=== PATIENT | female | born 1990 | race Caucasian/White ===

== ENCOUNTER 2016-08-03 15:40 | Emergency (ER) | payer BC ==
[~2016-08-03] VITALS: Ht 154.9 cm; Wt 104.6 kg
[~2016-08-03 15:40] MED LIST: CIPR250T52 PO
[2016-08-03 15:49] VITALS: BP 130/83; PULSE 76; RESP 16; TEMP 98; O2SAT 97
--- NOTE | 2016-08-03 16:41 | PD ---
HPI Chief Complaint: Abdominal Pain Time Seen by Provider: 16:32 Travel History International Travel<30 days: No Contact w/Intl Traveler<30days: No Traveled to known affect area: No History of Present Illness HPI This 26-year-old female has complaint of neck pain, myalgias and some abdominal discomfort. She says she hasn't felt well for several days. About 5 days ago she was started on labetalol for hypertension, amoxicillin for urinary tract infection and atorvastatin for high cholesterol. There is a family history of heart disease in fact her mother recently of a heart attack. She was feeling well prior to starting these medications. She has no history of diabetes. She does not smoke PFSH Past Medical History Hx Anticoagulant Therapy: No Anxiety: Yes Depression: Yes Cardiovascular Problems: Yes High Cholesterol: Yes Diabetes: No Diminished Hearing: No Gastrointestinal Disorders: Yes Hypertension: Yes Reproductive: No Immunizations Current: Yes Thyroid Disease: Yes (HYPOTHYROID) Tetanus Vaccination: < 5 Years Influenza Vaccination: Yes ?: Not : 0 Para: 0 Ovarian Cysts: Yes (RIGHT) Past Surgical History Abdominal Surgery: No Cardiac Surgery: No Ear Surgery: No Endocrine Surgery: No Eye Surgery: No Genitourinary Surgery: No Gynecologic Surgery: No Neurologic Surgery: No Oral Surgery: Yes (wisdom teeth) Thoracic Surgery: No Tonsillectomy: Yes Other Surgery: Yes (TONSILS) Social History Alcohol Use: No Tobacco Use: No (quit 4 yrs ago) Substance Use: Yes (MARIJUANA) Allergies-Medications (Allergen,Severity, Reaction): Coded Allergies: *MDRO Multi-Drug Resistant Organism (Verified Allergy, Unknown, 08/03/16) MRSA Acetaminophen (Verified Allergy, Unknown, 08/03/16) Reported Meds & Prescriptions Reported Meds & Active Scripts Active Reported Atorvastatin (Atorvastatin Calcium) 20 Mg Tab 20 Mg PO HS Amoxicillin 500 Mg Tab 500 Mg PO TID Labetalol (Labetalol HCl) 100 Mg Tab 100 Mg PO TID Review of Systems General / Constitutional: No: Fever, Chills Eyes: No: Diploplia, Blurred Vision HENT: Positive: Neck Stiffness, Neck Pain, No: Headaches, Vertigo Cardiovascular: No: Chest Pain or Discomfort, Palpitations Respiratory: No: Cough, Shortness of Breath Gastrointestinal: Positive: Abdominal Pain, Constipation Genitourinary: No: Urgency, Frequency Musculoskeletal: No: Myalgias, Arthralgias Skin: No Rash, No Itching Neurologic: No: Weakness, Dizziness Psychiatric: No: Anxiety, Depression Physical Exam Narrative GENERAL: Well-developed female SKIN: Warm and dry. HEAD: Atraumatic. Normocephalic. EYES: Pupils equal and round. No scleral icterus. No injection or drainage. ENT: No nasal bleeding or discharge. Mucous membranes pink and moist. NECK: Trachea midline. No JVD. She has some mild tenderness of the strap muscles. She is able to flex and extend the neck CARDIOVASCULAR: Regular rate and rhythm. No murmur appreciated. RESPIRATORY: No accessory muscle use. Clear to auscultation. Breath sounds equal bilaterally. GASTROINTESTINAL: Abdomen soft, non-tender, nondistended. Hepatic and splenic margins not palpable. MUSCULOSKELETAL: No obvious deformities. No clubbing. No cyanosis. No edema. NEUROLOGICAL: Awake and alert. No obvious cranial nerve deficits. Motor grossly within normal limits. Normal speech. PSYCHIATRIC: Appropriate mood and affect; insight and judgment normal. Data Data Last Documented VS Vital Signs Date Time Temp Pulse Resp B/P Pulse Ox O2 Delivery O2 Flow Rate FiO2 08/03/16 15:49 98.0 76 16 130/83 97 Orders Complete Blood Count With Diff (08/03/16 16:40) Comprehensive Metabolic Panel (08/03/16 16:40) Creatine Kinase (Cpk) (08/03/16 16:40) Labs Laboratory Tests Test 08/03/16 16:53 White Blood Count 11.0 TH/MM3 Red Blood Count 5.07 MIL/MM3 Hemoglobin 14.2 GM/DL Hematocrit 43.2 % Mean Corpuscular Volume 85.3 FL Mean Corpuscular Hemoglobin 28.0 PG Mean Corpuscular Hemoglobin 32.8 % Concent Red Cell Distribution Width 13.2 % Platelet Count 300 TH/MM3 Mean Platelet Volume 7.4 FL Neutrophils (%) (Auto) 63.0 % Lymphocytes (%) (Auto) 31.2 % Monocytes (%) (Auto) 2.7 % Eosinophils (%) (Auto) 2.7 % Basophils (%) (Auto) 0.4 % Neutrophils # (Auto) 7.0 TH/MM3 Lymphocytes # (Auto) 3.4 TH/MM3 Monocytes # (Auto) 0.3 TH/MM3 Eosinophils # (Auto) 0.3 TH/MM3 Basophils # (Auto) 0.0 TH/MM3 CBC Comment DIFF FINAL Differential Comment Sodium Level 140 MEQ/L Potassium Level 3.7 MEQ/L Chloride Level 104 MEQ/L Carbon Dioxide Level 27.7 MEQ/L Anion Gap 8 MEQ/L Blood Urea Nitrogen 15 MG/DL Creatinine 0.85 MG/DL Estimat Glomerular Filtration 80 ML/MIN Rate Random Glucose 160 MG/DL Calcium Level 8.5 MG/DL Total Bilirubin 0.5 MG/DL Aspartate Amino Transf 14 U/L (AST/SGOT) Alanine Aminotransferase 24 U/L (ALT/SGPT) Alkaline Phosphatase 53 U/L Total Creatine Kinase 160 U/L Total Protein 7.9 GM/DL Albumin 4.0 GM/DL [facility] Medical Decision Making Medical Screen Exam Complete: Yes Emergency Medical Condition: Yes Medical Record Reviewed: Yes Differential Diagnosis Differential includes viral syndrome, statin myopathy Narrative Course Patient's lab work is unremarkable. I suspect his symptoms could be due to the statin and I have recommended that she stop it for a few days to see if she feels better. She could then be rechallenge at a later time. Diagnosis Primary Impression: Adverse reaction to statin medication Qualified Code: T46.6X5A - Adverse reaction to statin medication, initial encounter Referrals: Alexandr Barney MD Additional Instructions: Hold atorvastatin Disposition: 01 DISCHARGE HOME Condition: Stable Kamari Lawton MD Aug 03, 2016 16:41
[2016-08-03] MEDS ORDERED: LABE100T2 PO (16:45)
[2016-08-03] MEDS ORDERED: AMOX500T PO (16:45)
[2016-08-03] MEDS ORDERED: ATOR20TA15 PO (16:45)
[2016-08-03 17:05] LABS: BASOPHIL % 0.4 % (0.0-2.0); EOSINOPHIL # 0.3 TH/MM3 (0-0.4); EOSINOPHIL % 2.7 % (0.0-4.0); HEMATOCRIT 43.2 % (35.0-46.0); HEMO FLAGS DIFF FINAL; LYMPH % 31.2 % (9.0-44.0); LYMPHOCYTE # 3.4 TH/MM3 (1.0-4.8); MEAN CELL VOLUME 85.3 FL (80.0-100.0); MEAN CORPUSCULAR HGB CONC 32.8 % (32.0-36.0); MONO % 2.7 % (0.0-8.0); PLATELET COUNT 300 TH/MM3 (150-450); RED BLOOD COUNT 5.07 MIL/MM3 (4.00-5.30); RED CELL DISTRIBUTION WIDTH 13.2 % (11.6-17.2)
[2016-08-03 17:12] LABS: CHLORIDE 104 MEQ/L (98-107); POTASSIUM 3.7 MEQ/L (3.5-5.1); SODIUM (NA) 140 MEQ/L (136-145)
[2016-08-03 17:15] LABS: ANION GAP 8 MEQ/L (5-15); BICARBONATE 27.7 MEQ/L (21.0-32.0)
[2016-08-03 17:16] LABS: BLOOD UREA NITROGEN 15 MG/DL (7-18)
[2016-08-03 17:18] LABS: AST (GOT) 14 U/L (15-37)
[2016-08-03 17:19] LABS: ALT (GPT) 24 U/L (10-53); GLOMERULAR FILTRATION RATE 80 ML/MIN (>89)
[2016-08-03 17:20] LABS: TOTAL BILIRUBIN ADULT 0.5 MG/DL (0.2-1.0)
[2016-08-03 17:21] LABS: ALKALINE PHOSPHATASE 53 U/L (45-117); CREATINE KINASE 160 U/L (26-192)
== END 2016-08-03 18:00 | disposition home or self-care (01) ==
LOC: PHED 15:40
DX: R10.9 Unspecified abdominal pain (principal); T46.6X5A Adverse effect of antihyperlipidemic and antiarteriosclerotic drugs, initial encounter; I10 Essential (primary) hypertension; E78.00 Pure hypercholesterolemia, unspecified; E03.9 Hypothyroidism, unspecified
CPT/HCPCS: 80053; 82550; 85025; 99284

== ENCOUNTER 2016-11-11 17:54 | Emergency (ER) | payer SELFPAY ==
[~2016-11-11] VITALS: Ht 154.9 cm; Wt 100.5 kg
[~2016-11-11 17:54] MED LIST changes: +AMOX500T PO; +ATOR20TA15 PO; -CIPR250T52 PO; +LABE100T2 PO
[2016-11-11 17:57] VITALS: BP 161/108; PULSE 94; RESP 16; TEMP 98.2; O2SAT 97
[2016-11-11] MEDS ORDERED: SODIUM CHLORIDE 0.9% FLUSH 10 ML FLUSH IVF PRN (18:15)
--- NOTE | 2016-11-11 18:20 | PD ---
HPI Chief Complaint: Back/ Neck Pain or Injury Time Seen by Provider: 18:07 Travel History International Travel<30 days: No Contact w/Intl Traveler<30days: No Traveled to known affect area: No History of Present Illness HPI 26-year-old female with history of PCOS, depression, hypertension, here for evaluation of several different complaints. The patient reports for the past 5 days she has been on her menstrual period which is heavier than usual. She is having lower abdominal cramping as well as pain in her back. She reports heavy lifting prior to back pain. Back pain is lower, mainly on the right side. Patient is also reporting intermittent sharp chest pain, currently she does not have any chest pain. She is also having intermittent paresthesias in her bilateral upper extremities. No dyspnea. No urinary symptoms. No history of IVDU. No fever. She denies suicidal or homicidal ideation. She reports that she is supposed to be on labetalol for her blood pressure and a statin, however she recently lost her insurance and was unable to fill these medications. PFSH Past Medical History Hx Anticoagulant Therapy: No Anxiety: Yes Depression: Yes Cardiovascular Problems: Yes (HTN , CHOL) High Cholesterol: Yes Diabetes: No Diminished Hearing: No Gastrointestinal Disorders: Yes Hypertension: Yes Reproductive: No Immunizations Current: Yes Thyroid Disease: Yes (HYPOTHYROID) ?: Not LMP: NOW : 0 Para: 0 Ovarian Cysts: Yes (RIGHT) Past Surgical History Abdominal Surgery: No Cardiac Surgery: No Ear Surgery: No Endocrine Surgery: No Eye Surgery: No Genitourinary Surgery: No Gynecologic Surgery: No Neurologic Surgery: No Oral Surgery: Yes (wisdom teeth) Thoracic Surgery: No Tonsillectomy: Yes Other Surgery: Yes (TONSILS) Social History Alcohol Use: No Tobacco Use: No (quit 4 yrs ago) Substance Use: Yes (MARIJUANA) Allergies-Medications (Allergen,Severity, Reaction): Coded Allergies: *MDRO Multi-Drug Resistant Organism (Verified Allergy, Unknown, 11/11/16) MRSA Acetaminophen (Verified Allergy, Unknown, 11/11/16) Reported Meds & Prescriptions Reported Meds & Active Scripts Active Reported Atorvastatin (Atorvastatin Calcium) 20 Mg Tab 20 Mg PO HS Labetalol (Labetalol HCl) 100 Mg Tab 100 Mg PO TID Review of Systems Except as stated in HPI: all other systems reviewed are Neg Physical Exam Narrative GENERAL: Well-developed, well-nourished, overweight, comfortable, no acute distress. SKIN: Focused skin assessment warm/dry. No rash. HEAD: Atraumatic. Normocephalic. EYES: Pupils equal and round. No scleral icterus. No injection or drainage. ENT: Mucous membranes pink and moist. NECK: Trachea midline. No JVD. CARDIOVASCULAR: Regular rate and rhythm. RESPIRATORY: No accessory muscle use. Clear to auscultation. Breath sounds equal bilaterally. GASTROINTESTINAL: Abdomen soft, nondistended. Mild lower abdominal/suprapubic tenderness without peritoneal signs. Rest of abdomen is soft and nontender. Normal bowel sounds. MUSCULOSKELETAL: No obvious deformities. No clubbing. No cyanosis. No edema. Mild right SI joint tenderness. No CVA tenderness. No midline vertebral step- off or tenderness. NEUROLOGICAL: Awake and alert. No obvious cranial nerve deficits. Motor grossly within normal limits. Normal speech. Normal muscle strength in all 4 extremities. Great toe extension present bilaterally. No saddle anesthesia. PSYCHIATRIC: Appropriate mood and affect; insight and judgment normal. Data Data Last Documented VS Vital Signs Date Time Temp Pulse Resp B/P Pulse Ox O2 Delivery O2 Flow Rate FiO2 11/11/16 19:33 17 11/11/16 17:57 98.2 94 161/108 97 Orders Electrocardiogram (11/11/16 18:13) Ckmb (Isoenzyme) Profile (11/11/16 18:13) Complete Blood Count With Diff (11/11/16 18:13) Comprehensive Metabolic Panel (11/11/16 18:13) Prothrombin Time / Inr (Pt) (11/11/16 18:13) Act Partial Throm Time (Ptt) (11/11/16 18:13) Troponin I (11/11/16 18:13) Chest, Single Ap (11/11/16 18:13) Ecg Monitoring (11/11/16 18:13) Iv Access Insert/Monitor (11/11/16 18:13) Oximetry (11/11/16 18:13) Sodium Chloride 0.9% Flush (Ns Flush) (11/11/16 18:15) Urinalysis - C+S If Indicated (11/11/16 18:13) Ed Urine Pregnancytest Poc (11/11/16 18:13) Ct Abd/Pel W Iv Contrast(Rout) (11/11/16 ) Ct Lumb Spine W/O Contrast (11/11/16 ) Ketorolac Inj (Toradol Inj) (11/11/16 18:30) CKMB (11/11/16 18:25) CKMB% (11/11/16 18:25) Labs Laboratory Tests Test 11/11/16 18:25 White Blood Count 11.3 TH/MM3 Red Blood Count 4.71 MIL/MM3 Hemoglobin 13.6 GM/DL Hematocrit 40.1 % Mean Corpuscular Volume 85.0 FL Mean Corpuscular Hemoglobin 28.9 PG Mean Corpuscular Hemoglobin 34.0 % Concent Red Cell Distribution Width 12.6 % Platelet Count 315 TH/MM3 Mean Platelet Volume 7.3 FL Neutrophils (%) (Auto) 51.9 % Lymphocytes (%) (Auto) 39.1 % Monocytes (%) (Auto) 4.1 % Eosinophils (%) (Auto) 4.2 % Basophils (%) (Auto) 0.7 % Neutrophils # (Auto) 5.8 TH/MM3 Lymphocytes # (Auto) 4.4 TH/MM3 Monocytes # (Auto) 0.5 TH/MM3 Eosinophils # (Auto) 0.5 TH/MM3 Basophils # (Auto) 0.1 TH/MM3 CBC Comment DIFF FINAL Differential Comment Prothrombin Time 11.0 SEC Prothromb Time International 1.0 RATIO Ratio Activated Partial 26.8 SEC Thromboplast Time Urine Color MARIA EUGENIA Urine Turbidity CLEAR Urine pH 5.5 Urine Specific [place] 1.025 Urine Protein NEG mg/dL Urine Glucose (UA) NEG mg/dL Urine Ketones NEG mg/dL Urine Occult Blood MOD Urine Nitrite NEG Urine Bilirubin NEG Urine Leukocyte Esterase NEG Urine RBC 0-3 /hpf Urine WBC 0-2 /hpf Urine Squamous Epithelial 0-5 /hpf Cells Urine Amorphous Sediment SMALL Urine Hyaline Casts 3-5 /lpf Urine Mucus MOD /lpf Microscopic Urinalysis Comment CULT NOT INDICATED Sodium Level 141 MEQ/L Potassium Level 4.2 MEQ/L Chloride Level 105 MEQ/L Carbon Dioxide Level 28.0 MEQ/L Anion Gap 8 MEQ/L Blood Urea Nitrogen 13 MG/DL Creatinine 1.00 MG/DL Estimat Glomerular Filtration 67 ML/MIN Rate Random Glucose 90 MG/DL Calcium Level 8.9 MG/DL Total Bilirubin 0.7 MG/DL Aspartate Amino Transf 28 U/L (AST/SGOT) Alanine Aminotransferase 27 U/L (ALT/SGPT) Alkaline Phosphatase 48 U/L Total Creatine Kinase 533 U/L Creatine Kinase MB 4.7 NG/ML Creatine Kinase MB % 0.9 % Troponin I LESS THAN 0.02 NG/ML Total Protein 7.7 GM/DL Albumin 4.3 GM/DL [facility] Medical Decision Making Medical Screen Exam Complete: Yes Emergency Medical Condition: Yes Interpretation(s) EKG: Sinus, rate 70, normal axis, normal intervals, no acute ischemic abnormality, unchanged from prior. Differential Diagnosis Lumbosacral strain, menstrual cramping, pyelonephritis, nephrolithiasis, UTI, cystitis, appendicitis, ACS unlikely, PE, pneumothorax, anxiety, anemia, metabolic abnormality Narrative Course Vital signs show heart rate 94, blood pressure 161/108, pulse ox 97% on room air , oral temp of 98.2F. CBC is unremarkable. CMP is unremarkable. Total CK is 533. Cardiac enzymes are negative. UA shows moderate occult blood, 3-5 hyaline casts, moderate mucus, negative nitrites, negative leukocyte esterase, not suggestive of UTI. Chest x-ray shows no acute cardiopulmonary disease. CT abdomen pelvis: No acute findings. Mild fatty liver. No significant change from 2014. Appendix is normal. CT lumbar spine: L4-L5: There is a broad-based disc protrusion, partially calcified with mild stenosis of the lateral recesses and mild foraminal encroachment. L5-S1: Focal central partially calcified disc protrusion and osteophytic ridging resulting in a mild thecal sac and lateral recess stenosis. CONCLUSION: 1. No acute fracture or subluxation. 2. Partially calcified disc protrusions at L4-5-S1 as above. Patient was made aware of all findings. She is resting comfortably. No physical exam findings of cord compression. The pressure improved to 130/90 while in the emergency department without any intervention. I do not believe her chest pain is cardiac in nature as it seems very atypical, intermittent, sharp. Currently she is chest pain-free. She does admit to feeling anxious which is likely causing a lot of her symptoms. She is stable for discharge home with outpatient follow-up with a primary care physician this week. I will also given the name of the neurosurgeon fire prevention captain with whom to follow-up regarding her low back pain/herniated disks. She was informed on when to return to the emergency department. She verbalizes understanding and agreement with plan. Diagnosis Primary Impression: Low back pain Qualified Code: M54.5 - Acute right-sided low back pain without sciatica Additional Impressions: Herniated lumbar intervertebral disc Atypical chest pain Referrals: Benedicto Mark MD 1 week Primary Care Physician 3 days Additional Instructions: Follow-up with a primary care physician this week. Follow-up with neurosurgeon Dr. Mark or a neurosurgeon of your choice. Return to the emergency department for worsening symptoms or any other concerns as discussed. Scripts Hydrocodone-Acetaminophen (Lortab)5-325 Mg Tab1 Tab PO Q6H PRN (PAIN) #15 TAB Ref 0 Prov:Po Clark MD 11/11/16 Prednisone 50 Mg Tab50 Mg PO DAILY 5 Days Ref 0 Prov:Po Clark MD 11/11/16 Disposition: 01 DISCHARGE HOME Condition: Stable Po Clark MD Nov 11, 2016 18:20
[2016-11-11] MEDS ORDERED: KETOROLAC TROMETHAMINE 30 MG/ML (IVP) VIAL IV PUSH ONE (18:30)
[2016-11-11] MEDS ORDERED: IOHEXOL 350 MG/ML 10 ML VIAL (for RAD DIAG) IV ONE (18:34)
--- NOTE | 2016-11-11 18:39 | RADHPO ---
EXAM DATE/TIME: 11/11/2016 18:23 [facility] COMPARISON: No previous studies available for comparison. INDICATIONS : Stated bilateral arm and hand pain and numbness, flutter feeling in chest , after heavy lifting today MEDICAL HISTORY : Hypertension. SURGICAL HISTORY : None. ENCOUNTER: Initial ACUITY: 1 day PAIN SCORE: 0/10 LOCATION: Bilateral chest FINDINGS: A single view of the chest demonstrates the lungs to be symmetrically aerated without evidence of mas s, infiltrate or effusion. The cardiomediastinal contours are unremarkable. Osseous structures are intact. CONCLUSION: No evidence of acute cardiopulmonary disease. Michael Yusuf MD on November 11, 2016 at 18:36 Board Certified Radiologist. This report was verified electronically.
[2016-11-11 18:46] LABS: AUTOMATED NEUTROPHIL # 5.8 TH/MM3 (1.8-7.7); BASOPHIL # 0.1 TH/MM3 (0-0.2); BASOPHIL % 0.7 % (0.0-2.0); EOSINOPHIL # 0.5 TH/MM3 (0-0.4); EOSINOPHIL % 4.2 % (0.0-4.0); HEMATOCRIT 40.1 % (35.0-46.0); HEMO FLAGS DIFF FINAL; LYMPH % 39.1 % (9.0-44.0); LYMPHOCYTE # 4.4 TH/MM3 (1.0-4.8); MEAN CORPUSCULAR HEMOGLOBIN 28.9 PG (27.0-34.0); MONO % 4.1 % (0.0-8.0); NEUT % 51.9 % (16.0-70.0); PLATELET COUNT 315 TH/MM3 (150-450); RED BLOOD COUNT 4.71 MIL/MM3 (4.00-5.30); RED CELL DISTRIBUTION WIDTH 12.6 % (11.6-17.2); WHITE BLOOD COUNT 11.3 TH/MM3 (4.0-11.0)
[2016-11-11 18:50] LABS: GLUCOSE,URINE NEG (NEG); KETONE, URINE NEG (NEG); NITRITE,URINE NEG (NEG); PH, URINE 5.5 (5.0-8.5)
[2016-11-11] MEDS ORDERED: LABE100T2 PO (18:52)
[2016-11-11] MEDS ORDERED: ATOR20TA15 PO (18:52)
[2016-11-11 19:00] LABS: BLOOD, URINE MOD (NEG); CHLORIDE 105 MEQ/L (98-107); POTASSIUM 4.2 MEQ/L (3.5-5.1); SODIUM (NA) 141 MEQ/L (136-145)
[2016-11-11 19:03] LABS: ANION GAP 8 MEQ/L (5-15)
[2016-11-11 19:04] LABS: BLOOD UREA NITROGEN 13 MG/DL (7-18)
[2016-11-11 19:05] LABS: APTT (PATIENT) 26.8 SEC (24.3-30.1)
--- NOTE | 2016-11-11 19:06 | RADHPO ---
EXAM DATE/TIME: 11/11/2016 18:34 [facility] COMPARISON: No previous studies available for comparison. INDICATIONS : Right lower quadrant abdominal pain, low back pain. Injury. IV CONTRAST: 96 cc Omnipaque 350 (iohexol) IV ORAL CONTRAST: No oral contrast ingested. RADIATION DOSE: 21.92 CTDIvol (mGy) MEDICAL HISTORY : Hypothyroidism. Hypertension. Ovarian cysts SURGICAL HISTORY : None. ENCOUNTER: Initial ACUITY: 1 day PAIN SCALE: 7/10 LOCATION: Right lower quadrant abdomen. TECHNIQUE: Volumetric scanning of the abdomen and pelvis was performed. Using automated exposure control and ad justment of the mA and/or kV according to patient size, radiation dose was kept as low as reasonably achievable to obtain optimal diagnostic quality images. FINDINGS: LOWER LUNGS: The visualized lower lungs are clear. LIVER: Homogeneous density without lesion. There is no dilation of the biliary tree. No calcified gallston es. SPLEEN: Normal size without lesion. PANCREAS: Within normal limits. KIDNEYS: Normal in size and shape. There is no mass, stone or hydronephrosis. ADRENAL GLANDS: Within normal limits. VASCULAR: There is no aortic aneurysm. BOWEL/MESENTERY: The stomach, small bowel, and colon demonstrate no acute abnormality. There is no free intraperitone al air or fluid. ABDOMINAL WALL: Within normal limits. RETROPERITONEUM: There is no lymphadenopathy. BLADDER: No wall thickening or mass. REPRODUCTIVE: Within normal limits. INGUINAL: There is no lymphadenopathy or hernia. MUSCULOSKELETAL: Within normal limits for patient age. CONCLUSION: 1. No acute findings. Mild fatty liver. No significant change from 2013. Appendix normal. Dillon Costa MD on November 11, 2016 at 19:00 Board Certified Radiologist. This report was verified electronically.
[2016-11-11 19:07] LABS: ALT (GPT) 27 U/L (10-53); AST (GOT) 28 U/L (15-37); GLOMERULAR FILTRATION RATE 67 ML/MIN (>89)
[2016-11-11 19:08] LABS: MUCUS URINE MOD /lpf (OCC); TOTAL BILIRUBIN ADULT 0.7 MG/DL (0.2-1.0); URINE COLOR AMBER (YELLW/STRAW)
[2016-11-11 19:09] LABS: ALKALINE PHOSPHATASE 48 U/L (45-117); CREATINE KINASE 533 U/L (26-192); SQUAMOUS EPITHELIAL CELL URINE 0-5 /hpf (0-5)
[2016-11-11 19:12] LABS: RBC, URINE 0-3 /hpf (0-3); WBC, URINE 0-2 /hpf (0-5)
[2016-11-11 19:14] LABS: COMMENT (UR) CULT NOT INDICATED; CULTURE IF INDICATED CULT NOT INDICATED
[2016-11-11 19:22] LABS: CKMB 4.7 NG/ML (0.5-3.6)
[2016-11-11 19:33] VITALS: RESP 17
--- NOTE | 2016-11-11 19:35 | RADHPO ---
EXAM DATE/TIME: 11/11/2016 18:34 [facility] COMPARISON: No previous studies available for comparison. INDICATIONS : Low back pain. RADIATION DOSE: ; Reconstructed from previous dataset MEDICAL HISTORY : Hypertension. Hypothyroidism. Ovarian cysts. SURGICAL HISTORY : None. ENCOUNTER: Initial ACUITY: 1 day PAIN SCALE: 7/10 LOCATION: Lumbar spine TECHNIQUE: Volumetric scanning of the lumbar spine was performed. Multiplanar reconstructions in the sagittal, coronal and oblique axial planes were performed. Using automated exposure control and adjustment of the mA and/or kV according to patient size, radiation dose was kept as low as reasonably achievable t o obtain optimal diagnostic quality images. FINDINGS: VERTEBRAE: Normal vertebral body height. ALIGNMENT: No evidence of subluxation. T12-L1: The thecal sac has a normal diameter. No evidence of disc bulge or protrusion. The neural foramina are patent bilaterally. L1-L2: The thecal sac has a normal diameter. No evidence of disc bulge or protrusion. The neural foramina are patent bilaterally. L2-L3: The thecal sac has a normal diameter. No evidence of disc bulge or protrusion. The neural foramina are patent bilaterally. L3-L4: The thecal sac has a normal diameter. No evidence of disc bulge or protrusion. The neural foramina are patent bilaterally. L4-L5: There is a broad-based disc protrusion, partially calcified with mild stenosis of the lateral recesse s and mild foraminal encroachment. L5-S1: Focal central partially calcified disc protrusion and osteophytic ridging resulting in a mild thecal sac and lateral recess stenosis. CONCLUSION: 1. No acute fracture or subluxation. 2. Partially calcified disc protrusions at L4-5-S1 as above. Dillon Costa MD on November 11, 2016 at 19:30 Board Certified Radiologist. This report was verified electronically.
[2016-11-11] MEDS ORDERED: HYDR-3533 PO (19:43)
[2016-11-11] MEDS ORDERED: PRED50 PO (19:43)
[2016-11-11] MEDS ORDERED: predniSONE 50 MG TAB PO ONE (19:45)
[2016-11-11 19:57] VITALS: BP 123/91
--- NOTE | 2016-11-12 09:39 | EKG ---
Date Performed: 11/11/2016 Time Performed: 18:21:18 PTAGE: 26 years EKG: Sinus rhythm Inferior T wave changes may be normal for age Borderline ECG PREVIOUS TRACING : 12/18/2015 03.28 DOCTOR: Fermin Zhou Interpretating Date/Time 11/12/2016 09:33:05
== END 2016-11-11 20:15 | disposition home or self-care (01) ==
LOC: PHED 17:54
DX: M54.5 Low back pain (principal); M51.26 Other intervertebral disc displacement, lumbar region; R07.89 Other chest pain; N93.9 Abnormal uterine and vaginal bleeding, unspecified; R10.30 Lower abdominal pain, unspecified; R20.2 Paresthesia of skin; R94.31 Abnormal electrocardiogram [ECG] [EKG]; I10 Essential (primary) hypertension; E03.9 Hypothyroidism, unspecified; E78.00 Pure hypercholesterolemia, unspecified; Z86.59 Personal history of other mental and behavioral disorders; Z86.79 Personal history of other diseases of the circulatory system; Z87.19 Personal history of other diseases of the digestive system; Z87.891 Personal history of nicotine dependence
CPT/HCPCS: 71010; 72131; 74177; 80053; 81001; 82550; 82552; 84484; 84703; 85025; 85610; 85730; 93005; 96374; 99285; J1885; J7512; Q9967

== ENCOUNTER 2016-11-14 13:21 | Emergency (ER) | payer OTHER ==
[~2016-11-14] VITALS: Ht 162.6 cm; Wt 95.0 kg
[~2016-11-14 13:21] MED LIST changes: -AMOX500T PO; +HYDR-3533 PO; +PRED50 PO
[2016-11-14] MEDS ORDERED: TETANUS/DIPHTHERIA TOXOID ADULT 0.5 ML VIAL IM ONE (14:45)
[2016-11-14] MEDS ORDERED: LIDOCAINE 1%/EPINEPHrine 1:100,000 SOLN 20 ML VIAL INFIL ONE (14:45)
[2016-11-14 14:56] VITALS: BP 161/109; PULSE 75; RESP 18; TEMP 97.8; O2SAT 98
--- NOTE | 2016-11-14 16:22 | PD ---
HPI Chief Complaint: Psychiatric Symptoms Time Seen by Provider: 16:15 Travel History International Travel<30 days: No Contact w/Intl Traveler<30days: No Traveled to known affect area: No History of Present Illness HPI 26-year-old female that presents to the ED for evaluation of Scherer act. Patient was Scherer acted by police after apparently she cut herself on her left arm to get attention from her grandmother. Per patient she is having issues with her grandmother who she states "does not like me ". Per patient she did this to get her attention is also to help her deal with the pain. Per patient she recently lost her mother. She has no chest pain. No shortness of breath. Patient does have some superficial cuts to her left arm. 2 of them are deep and had some bleeding. She denies any other injuries. She does not know her last tetanus shot. She does have a history of depression. Per patient she's been dealing with this her whole life. No other medical issues. Pain is 2 out of 10. PFSH Past Medical History Hx Anticoagulant Therapy: No Anxiety: Yes Depression: Yes Cardiovascular Problems: Yes (HTN , CHOL) High Cholesterol: Yes Diabetes: No Diminished Hearing: No Gastrointestinal Disorders: Yes Hypertension: Yes Musculoskeletal: Yes (BACK PAIN) Reproductive: No Immunizations Current: Yes Thyroid Disease: Yes (HYPOTHYROID) ?: Not : 0 Para: 0 Ovarian Cysts: Yes (RIGHT) Past Surgical History Abdominal Surgery: No Cardiac Surgery: No Ear Surgery: No Endocrine Surgery: No Eye Surgery: No Genitourinary Surgery: No Gynecologic Surgery: No Neurologic Surgery: No Oral Surgery: Yes (wisdom teeth) Thoracic Surgery: No Tonsillectomy: Yes Other Surgery: Yes (TONSILS) Social History Alcohol Use: No Tobacco Use: No Substance Use: Yes Allergies-Medications (Allergen,Severity, Reaction): Coded Allergies: *MDRO Multi-Drug Resistant Organism (Verified Allergy, Unknown, 11/14/16) MRSA Acetaminophen (Verified Allergy, Unknown, 11/14/16) Reported Meds & Prescriptions Reported Meds & Active Scripts Active Lortab (Hydrocodone-Acetaminophen) 5-325 Mg Tab 1 Tab PO Q6H PRN Reported Labetalol (Labetalol HCl) 100 Mg Tab 100 Mg PO TID Review of Systems Except as stated in HPI: all other systems reviewed are Neg Physical Exam Narrative GENERAL: SKIN: Warm and dry. Patient has superficial cuts to the ventral aspect of her left arm. Patient has 2 large deep. About a quarter centimeter deep. No obvious nerve, vessel, tendon damage. Able to move all fingers. Slightly tender to touch. One of them is about 3 cm in length and the other one is about 5 cm in length. HEAD: Atraumatic. Normocephalic. EYES: Pupils equal and round. No scleral icterus. No injection or drainage. ENT: No nasal bleeding or discharge. Mucous membranes pink and moist. Tongue is midline. No uvula deviation. NECK: Trachea midline. No JVD. CARDIOVASCULAR: Regular rate and rhythm. No murmurs, S3, S4. RESPIRATORY: No accessory muscle use. Clear to auscultation. Breath sounds equal bilaterally. GASTROINTESTINAL: Abdomen soft, non-tender, nondistended. Hepatic and splenic margins not palpable. MUSCULOSKELETAL: Extremities without clubbing, cyanosis, or edema. No obvious deformities. Full range of motion of the upper and lower extremities bilaterally. 2+ pulses bilaterally. NEUROLOGICAL: Awake and alert. No obvious cranial nerve deficits. Motor grossly within normal limits. Five out of 5 muscle strength in the arms and legs. Normal speech. PSYCHIATRIC: Appropriate mood and affect; insight and judgment normal. Data Data Last Documented VS Vital Signs Date Time Temp Pulse Resp B/P Pulse Ox O2 Delivery O2 Flow Rate FiO2 11/14/16 14:56 97.8 75 18 161/109 98 Room Air Orders Wound Care (11/14/16 14:34) Tetanus/Diphtheria Tox Adult (Tetanus/Di (11/14/16 14:45) Lidocai-Epi 1%-1:100,000 Inj (Xylocaine- (11/14/16 14:45) Complete Blood Count With Diff (11/14/16 14:34) Comprehensive Metabolic Panel (11/14/16 14:34) Ed Urine Pregnancytest Poc (11/14/16 14:34) Psych Screen (11/14/16 14:34) Drug Screen, Random Urine (11/14/16 14:34) Alcohol (Ethanol) (11/14/16 14:34) Salicylates (Aspirin) (11/14/16 14:34) Tylenol (Acetaminophen) (11/14/16 14:34) Diet Regular Basic (11/14/16 Lunch) Diet Regular Basic (11/14/16 Dinner) Diet Regular Basic (11/14/16 Lunch) Labs Laboratory Tests Test 11/14/16 11/14/16 16:00 16:15 Urine Opiates Screen POS Urine Barbiturates Screen NEG Urine Amphetamines Screen NEG Urine Benzodiazepines Screen POS Urine Cocaine Screen POS Urine Cannabinoids Screen POS White Blood Count 15.8 TH/MM3 Red Blood Count 4.80 MIL/MM3 Hemoglobin 13.6 GM/DL Hematocrit 41.7 % Mean Corpuscular Volume 86.9 FL Mean Corpuscular Hemoglobin 28.3 PG Mean Corpuscular Hemoglobin 32.6 % Concent Red Cell Distribution Width 13.8 % Platelet Count 272 TH/MM3 Mean Platelet Volume 7.8 FL Neutrophils (%) (Auto) 66.4 % Lymphocytes (%) (Auto) 27.9 % Monocytes (%) (Auto) 5.3 % Eosinophils (%) (Auto) 0.3 % Basophils (%) (Auto) 0.1 % Neutrophils # (Auto) 10.5 TH/MM3 Lymphocytes # (Auto) 4.4 TH/MM3 Monocytes # (Auto) 0.8 TH/MM3 Eosinophils # (Auto) 0.0 TH/MM3 Basophils # (Auto) 0.0 TH/MM3 CBC Comment DIFF FINAL Differential Comment Sodium Level 141 MEQ/L Potassium Level 3.2 MEQ/L Chloride Level 104 MEQ/L Carbon Dioxide Level 28.3 MEQ/L Anion Gap 9 MEQ/L Blood Urea Nitrogen 17 MG/DL Creatinine 1.14 MG/DL Estimat Glomerular Filtration 57 ML/MIN Rate Random Glucose 109 MG/DL Calcium Level 9.1 MG/DL Total Bilirubin 0.4 MG/DL Aspartate Amino Transf 19 U/L (AST/SGOT) Alanine Aminotransferase 26 U/L (ALT/SGPT) Alkaline Phosphatase 45 U/L Total Protein 7.4 GM/DL Albumin 4.1 GM/DL Salicylates Level 2.8 MG/DL Acetaminophen Level LESS THAN 2.0 MCG/ML Ethyl Alcohol Level LESS THAN 3 MG/DL MDM Medical Decision Making Medical Screen Exam Complete: Yes Emergency Medical Condition: Yes Medical Record Reviewed: Yes Interpretation(s) CBC & BMP Diagram 11/14/16 16:15 Tox positive for cocaine, benzo, opiates Differential Diagnosis Laceration versus abrasion versus cutting versusDepression versus suicidal ideation versus anxiety versus adjustment disorder versus mood disorder versus bipolar disorder versus schizophrenia versus paranoid disorder versus psychosis versus substance abuse versus alcohol abuse versus alcohol induced psychosis versus homicidality addition versus cutting versus personality disorder Narrative Course 26-year-old female that presents to the ED for evaluation of Scherer act. Patient was properly examined and was found to have signs and symptoms very consistent what appears to be psychiatric illness. Patient does have 2 lacerations are superficial but requires suturing. Patient agrees to proceed with suturing plan. After explained procedure and she agreed to it laceration were repaired as stated in procedure note. Please refer to my note. Patient was told to get sutures removed in 14 days. Patient was given tetanus booster. Patient was medically cleared after labs were drawn. Okay to be seen by psych. Mental health screening was discussed with the patient. Procedures Procedure Narrative LACERATION LOCATION: left arm LENGTH: 5 cm NUMBER OF STITCHES/HETAL: 5 sutures REPAIR: The area of the laceration was prepped with Betadine and sterilely draped. The laceration was infiltrated with 1% Xylocaine. The wound was copiously irrigated and explored without evidence of foreign body, tendon injury or neurovascular injury. The wound was closed using 3-0 Ethilone. This was a 1 layer repair. A sterile dressing was applied. The patient was advised to keep the dressing clean and dry. Patient tolerated the procedure well. LACERATION LOCATION: left arm LENGTH: 3 cm NUMBER OF STITCHES/HETAL: 5 sutures REPAIR: The area of the laceration was prepped with Betadine and sterilely draped. The laceration was infiltrated with 1% Xylocaine. The wound was copiously irrigated and explored without evidence of foreign body, tendon injury or neurovascular injury. The wound was closed using 3-0 Ethilone. This was a 1 layer repair. A sterile dressing was applied. The patient was advised to keep the dressing clean and dry. Patient tolerated the procedure well. Diagnosis Primary Impression: Depression Qualified Code: F32.1 - Moderate single current episode of major depressive disorder Additional Impression: Laceration of forearm, left Qualified Code: S51.812A - Laceration of forearm, left, initial encounter Dario Gamboa Nov 14, 2016 16:22
[2016-11-14 16:47] LABS: AUTOMATED NEUTROPHIL # 10.5 TH/MM3 (1.8-7.7); BASOPHIL % 0.1 % (0.0-2.0); EOSINOPHIL % 0.3 % (0.0-4.0); HEMATOCRIT 41.7 % (35.0-46.0); HEMO FLAGS DIFF FINAL; LYMPH % 27.9 % (9.0-44.0); LYMPHOCYTE # 4.4 TH/MM3 (1.0-4.8); MEAN CELL VOLUME 86.9 FL (80.0-100.0); MEAN CORPUSCULAR HEMOGLOBIN 28.3 PG (27.0-34.0); MEAN CORPUSCULAR HGB CONC 32.6 % (32.0-36.0); MONO % 5.3 % (0.0-8.0); NEUT % 66.4 % (16.0-70.0); PLATELET COUNT 272 TH/MM3 (150-450); RED CELL DISTRIBUTION WIDTH 13.8 % (11.6-17.2); WHITE BLOOD COUNT 15.8 TH/MM3 (4.0-11.0)
[2016-11-14 17:32] LABS: ANION GAP 9 MEQ/L (5-15); AST (GOT) 19 U/L (15-37); BICARBONATE 28.3 MEQ/L (21.0-32.0); BLOOD UREA NITROGEN 17 MG/DL (7-18); CHLORIDE 104 MEQ/L (98-107); GLOMERULAR FILTRATION RATE 57 ML/MIN (>89); POTASSIUM 3.2 MEQ/L (3.5-5.1); SODIUM (NA) 141 MEQ/L (136-145)
[2016-11-14 17:33] LABS: ALT (GPT) 26 U/L (10-53)
[2016-11-14 17:35] LABS: ACETAMINOPHEN LESS THAN 2.0 MCG/ML (10.0-30.0); ALKALINE PHOSPHATASE 45 U/L (45-117); TOTAL BILIRUBIN ADULT 0.4 MG/DL (0.2-1.0)
[2016-11-14 17:40] LABS: AMPHETAMINE, URINE NEG (NEG); BARBITURATES, URINE NEG (NEG); COCAINE, URINE POS (NEG)
[2016-11-14] MEDS ORDERED: IBUPROFEN 600 MG TAB PO ONE (18:45)
[2016-11-14 18:58] VITALS: BP 170/115; PULSE 70; RESP 16; O2SAT 97
[2016-11-14 19:03] VITALS: BP 164/111; PULSE 72; RESP 18; O2SAT 98
[2016-11-14] MEDS ORDERED: LABETALOL HCL 100 MG TAB PO ONE (19:45)
[2016-11-14 22:07] VITALS: BP 159/93; PULSE 71; RESP 18; TEMP 97.6; O2SAT 100
[2016-11-15 01:49] VITALS: BP 144/79; PULSE 87; RESP 18; TEMP 98.5; O2SAT 99
[2016-11-15 05:42] VITALS: BP 145/90; PULSE 59; RESP 18; TEMP 97.9; O2SAT 97
[2016-11-15 10:47] VITALS: BP 141/108; PULSE 64; RESP 18; O2SAT 99
--- NOTE | 2016-11-15 11:16 | PD ---
History of Present Illness Chief Complaint: Psychiatric Symptoms Time Seen by Provider: 11:00 Travel History International Travel<30 Days: No Contact w/Intl Traveler<30days: No Known affected area: No Legal Status Legal Status: Scherer Act Scherer Act Signed By: Terry Bell History of Present Illness: History of Present Illness HPI 26-year-old female with no previous psychiatric history, has been BA in the past in 2012, that presents to the ED under a Scherer act initiated by LYNDA. The report states that her mother recently and that she has been feeling depressed. She got into an argument with her grandmother and her fiancee and during the argument she cut her wrist with a piece of ceramic. Patient is seen. Record is reviewed. The patient was evaluated in 2013 and was sent to [facility] att hat time. She is alert, oriented, engaging and cooperative. Speech is clear and logical, goal directed. There is no psychosis and no ezekiel. Mood is anxious. She denies feeling depressed. She denies that she cut herself to kill herself but that she cut herself to release some pressure. States " I did something stupid. I was high and didn't realize it until this morning that I cut so deep. I don't want to kill myself. I love my life. 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 She acknowledges that substances were involved and contributed to her impulsive action. She is also requesting referrals for counseling services. PFSH Past Medical History Hx Anticoagulant Therapy: No Anxiety: Yes Depression: Yes Cardiovascular Problems: Yes (HTN , CHOL) High Cholesterol: Yes Diabetes: No Diminished Hearing: No Gastrointestinal Disorders: Yes Hypertension: Yes Musculoskeletal: Yes (BACK PAIN) Reproductive: No Immunizations Current: Yes Thyroid Disease: Yes (HYPOTHYROID) ?: Not : 0 Para: 0 Ovarian Cysts: Yes (RIGHT) Past Surgical History Abdominal Surgery: No Cardiac Surgery: No Ear Surgery: No Endocrine Surgery: No Eye Surgery: No Genitourinary Surgery: No Gynecologic Surgery: No Neurologic Surgery: No Oral Surgery: Yes (wisdom teeth) Thoracic Surgery: No Tonsillectomy: Yes Other Surgery: Yes (TONSILS) Psychiatric History Psychiatric History Hx Psychiatric Treatment: Negative. One prior BA in 2013. Currently not in tx History of Inpatient Treatment: Yes Guns or firearms in home: No Social History Single female. lives with grandmother and her boyfriend. 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 Hx Alcohol Use: No Hx Tobacco Use: No Hx Substance Use: Yes Substance Use Type: Marijuana, Prescription Medications, Benzos (Valium,Xanax) , Cocaine Hx of Substance Use Treatment: No (She deneis daily use of substances and claims this was an isolated incident. ) Family Psychiatric History Negative Allergies-Medications (Allergen,Severity, Reaction): Coded Allergies: *MDRO Multi-Drug Resistant Organism (Verified Allergy, Unknown, 11/14/16) MRSA Acetaminophen (Verified Allergy, Unknown, 11/14/16) Reported Meds & Prescriptions Reported Meds & Active Scripts Active Lortab (Hydrocodone-Acetaminophen) 5-325 Mg Tab 1 Tab PO Q6H PRN Reported Labetalol (Labetalol HCl) 100 Mg Tab 100 Mg PO TID Review of Systems Except as stated in HPI: all other systems reviewed are Neg Exam Alert: Yes [place]: Person (ox4) Mood: Anxious, Calm Affect: Appropriate Speech: Clear, Logical Eye Contact: Normal Memory Intact: Comment (no impairmetn) Hallucinations: Other (negative) Delusions: No Suicidal: Ideation (Negative) Homicidal: Ideation (Negative) Insight/Judgement Fair. Not impaired. MDM Medical Decision Making Medical Record Reviewed: Yes Assessment/Plan 26 year old female with no previous psychiatric history who in context of substance intoxication as well as being involved in an argument with her grandmother cut her wrist to release some pressure and anxiety. Patient denies any suicidal ideation, intent or plan. is future oriented and is excited over her current enrollment in medical [employer] school. She reports this was an impulsive act. She does not meet BA criteria and will be discharged. She is provided referral numbers to call for counseling and recommended [facility] group. Orders Wound Care (11/14/16 14:34) Tetanus/Diphtheria Tox Adult (Tetanus/Di (11/14/16 14:45) Lidocai-Epi 1%-1:100,000 Inj (Xylocaine- (11/14/16 14:45) Complete Blood Count With Diff (11/14/16 14:34) Comprehensive Metabolic Panel (11/14/16 14:34) Ed Urine Pregnancytest Poc (11/14/16 14:34) Psych Screen (11/14/16 14:34) Drug Screen, Random Urine (11/14/16 14:34) Alcohol (Ethanol) (11/14/16 14:34) Salicylates (Aspirin) (11/14/16 14:34) Tylenol (Acetaminophen) (11/14/16 14:34) Diet Regular Basic (11/14/16 Lunch) Diet Regular Basic (11/14/16 Dinner) Diet Regular Basic (11/14/16 Lunch) Ibuprofen (Motrin) (11/14/16 18:45) Labetalol (Trandate) (11/14/16 19:45) Diet Regular Basic (11/15/16 Breakfast) Diet Regular Basic (11/15/16 Lunch) Results Vital Signs Date Time Temp Pulse Resp B/P Pulse Ox O2 Delivery O2 Flow Rate FiO2 11/15/16 10:47 64 18 141/108 99 11/15/16 05:42 97.9 59 18 145/90 97 Room Air 11/15/16 01:49 98.5 87 18 144/79 99 Room Air 11/14/16 22:07 97.6 71 18 159/93 100 Room Air 11/14/16 19:03 72 18 164/111 98 Room Air 11/14/16 18:58 70 16 170/115 97 Room Air 11/14/16 14:56 97.8 75 18 161/109 98 Room Air Laboratory Tests Test 11/14/16 11/14/16 16:00 16:15 Urine Opiates Screen POS Urine Barbiturates Screen NEG Urine Amphetamines Screen NEG Urine Benzodiazepines Screen POS Urine Cocaine Screen POS Urine Cannabinoids Screen POS White Blood Count 15.8 Red Blood Count 4.80 Hemoglobin 13.6 Hematocrit 41.7 Mean Corpuscular Volume 86.9 Mean Corpuscular Hemoglobin 28.3 Mean Corpuscular Hemoglobin 32.6 Concent Red Cell Distribution Width 13.8 Platelet Count 272 Mean Platelet Volume 7.8 Neutrophils (%) (Auto) 66.4 Lymphocytes (%) (Auto) 27.9 Monocytes (%) (Auto) 5.3 Eosinophils (%) (Auto) 0.3 Basophils (%) (Auto) 0.1 Neutrophils # (Auto) 10.5 Lymphocytes # (Auto) 4.4 Monocytes # (Auto) 0.8 Eosinophils # (Auto) 0.0 Basophils # (Auto) 0.0 CBC Comment DIFF FINAL Differential Comment Sodium Level 141 Potassium Level 3.2 Chloride Level 104 Carbon Dioxide Level 28.3 Anion Gap 9 Blood Urea Nitrogen 17 Creatinine 1.14 Estimat Glomerular Filtration 57 Rate Random Glucose 109 Calcium Level 9.1 Total Bilirubin 0.4 Aspartate Amino Transf 19 (AST/SGOT) Alanine Aminotransferase 26 (ALT/SGPT) Alkaline Phosphatase 45 Total Protein 7.4 Albumin 4.1 Salicylates Level 2.8 Acetaminophen Level LESS THAN 2.0 Ethyl Alcohol Level LESS THAN 3 Diagnosis Primary Impression: Laceration of forearm, left Additional Impression: Substance induced mood disorder Psychiatrically Cleared: Yes Departure Forms: Tests/Procedures Patient Instructions: General Instructions, Mood Disorders (ED) Additional Instructions: Discharge Home Dx. Substance induced mood disorder Follow-up as needed with PMD Follow-up with ED for any further problems Med/ Other Pt Specific Info: No Meds Exist/No RX given Disposition: 01 DISCHARGE HOME Condition: Stable Problem Qualifiers Primary Impression: Laceration of forearm, left Qualified Code: S51.812A - Laceration of forearm, left, initial encounter Nichole Daugherty Nov 15, 2016 11:16
[2016-11-15 12:46] VITALS: BP 132/90; TEMP 98
== END 2016-11-15 12:50 | disposition home or self-care (01) ==
LOC: NEPJ 13:21
DX: F32.1 Major depressive disorder, single episode, moderate (principal); S51.812A Laceration without foreign body of left forearm, initial encounter; F19.94 Other psychoactive substance use, unspecified with psychoactive substance-induced mood disorder; I10 Essential (primary) hypertension; E03.9 Hypothyroidism, unspecified; E78.00 Pure hypercholesterolemia, unspecified; X78.9XXA Intentional self-harm by unspecified sharp object, initial encounter; Z23 Encounter for immunization; Z86.59 Personal history of other mental and behavioral disorders; Z86.79 Personal history of other diseases of the circulatory system; Z87.19 Personal history of other diseases of the digestive system; Z87.39 Personal history of other diseases of the musculoskeletal system and connective tissue
CPT/HCPCS: 12004; 80053; 80307; 84703; 85025; 90471; 90714

== ENCOUNTER 2017-06-16 08:52 | Emergency (ER) | payer SELFPAY ==
[~2017-06-16] VITALS: Ht 154.9 cm; Wt 94.2 kg
[~2017-06-16 08:52] MED LIST changes: -ATOR20TA15 PO; -PRED50 PO
[2017-06-16 08:54] VITALS: BP 182/122; PULSE 83; RESP 18; TEMP 98.5; O2SAT 98
[2017-06-16] MEDS ORDERED: CLON0.1T PO (09:04)
--- NOTE | 2017-06-16 09:09 | PD ---
HPI Chief Complaint: Cold / Flu Symptoms Time Seen by Provider: 09:01 Travel History International Travel<30 days: No Contact w/Intl Traveler<30days: No Traveled to known affect area: No History of Present Illness HPI 26 YO F with PMH of HTN, herniated lumbar disc with sciatica presents to the ED for evaluation of 1 week history of chills, sinus congestion, clear rhinorrhea, nonproductive cough. She denies measuring a fever at home, ear pain, sore throat, nausea, vomiting. She states that approximately one week before onset of the symptoms she had the "stomach flu" with multiple episodes of nonbilious vomiting and nonbloody diarrhea that has since resolved. She states last menstrual period was 05/11/17. Endorses unprotected sex with a single male partner since then. Also complains of worsening chronic back pain symptoms. She states that she thinks that her cough may have exacerbated her normal pain. Back pains rated 8/10, radiates down the right leg. Endorses intermittent numbness and tingling down the right leg. Denies weakness, limitations to range of motion, giving way, saddle anesthesia, fecal/urinary incontinence. She denies urinary urgency, dysuria, hematuria. She treated her cold symptoms at home with OTC medications with no improvement of symptoms. She does not currently have a primary care doctor. She did not receive this years flu vaccination. PFSH Past Medical History Hx Anticoagulant Therapy: No Anxiety: Yes Depression: Yes Cardiovascular Problems: Yes (HTN) High Cholesterol: Yes Diabetes: No Diminished Hearing: No Gastrointestinal Disorders: Yes Hypertension: Yes Musculoskeletal: Yes (BACK PAIN) Reproductive: No Immunizations Current: Yes Thyroid Disease: Yes (HYPOTHYROID) ?: Unknown LMP: 05/11/17 : 0 Para: 0 Ovarian Cysts: Yes (RIGHT) Past Surgical History Abdominal Surgery: No Cardiac Surgery: No Ear Surgery: No Endocrine Surgery: No Eye Surgery: No Genitourinary Surgery: No Gynecologic Surgery: No Neurologic Surgery: No Oral Surgery: Yes (wisdom teeth) Thoracic Surgery: No Tonsillectomy: Yes Other Surgery: Yes (TONSILS) Social History Alcohol Use: No Tobacco Use: No Substance Use: Yes Allergies-Medications (Allergen,Severity, Reaction): Coded Allergies: *MDRO Multi-Drug Resistant Organism (Verified Allergy, Unknown, 06/16/17) MRSA acetaminophen (Unverified Allergy, Unknown, 06/16/17) Reported Meds & Prescriptions Reported Meds & Active Scripts Active Benzonatate 100 Mg Cap 200 Mg PO TID PRN Dagmar-D 24 Hour Allergy (Fexofenadine-Pseudoephedrine ER 24 HR) 180-240 Debbie 1 Tab PO DAILY Flexeril (Cyclobenzaprine HCl) 5 Mg Tab 5 Mg PO TID Ibuprofen 800 Mg Tab 800 Mg PO Q8H PRN Reported Clonidine (Clonidine HCl) 0.1 Mg Tab 0.1 Mg PO DAILY Review of Systems Except as stated in HPI: all other systems reviewed are Neg Physical Exam Narrative GENERAL: Well-nourished, well-developed nontoxic appearing white female in no acute distress. SKIN: Warm and dry. HEAD: Normocephalic. Atraumatic. EYES: No scleral icterus. No injection or drainage. PERRLA. EOMI. ENT: Pearly crowell tympanic membranes bilaterally. Nasal mucosa is moist. Oropharynx without erythema, edema or exudate. NECK: Supple, trachea midline. No JVD or lymphadenopathy. CARDIOVASCULAR: Regular rate and rhythm without murmurs, gallops, or rubs. RESPIRATORY: Breath sounds clear and equal bilaterally. No accessory muscle use. GASTROINTESTINAL: Abdomen soft, non-tender, nondistended. + Bowel sounds MUSCULOSKELETAL: No cyanosis, or edema. 5/5 strength of dorsiflexion, plantar flexion, knee and hip flexion bilaterally. Straight leg raise positive on the right. BACK: No obvious deformity. No CVA tenderness. Positive midline tenderness in the lumbar area in the right sciatic notch. Data Data Last Documented VS Vital Signs Date Time Temp Pulse Resp B/P (MAP) Pulse Ox O2 Delivery O2 Flow Rate FiO2 06/16/17 08:54 98.5 83 18 182/122 (142) 98 Orders Orders Ed Urine Pregnancytest Poc (06/16/17 09:09) Urinalysis - C+S If Indicated (06/16/17 09:09) Ibuprofen (Motrin) (06/16/17 09:30) Benzonatate (Tessalon) (06/16/17 09:30) Ed Discharge Order (06/16/17 09:33) Labs Laboratory Tests Test 06/16/17 09:15 Urine Collection Type CLEAN CATCH Urine Color YELLOW Urine Turbidity CLEAR Urine pH 5.5 Urine Specific [place] 1.020 Urine Protein NEG mg/dL Urine Glucose (UA) NEG mg/dL Urine Ketones NEG mg/dL Urine Occult Blood TRACE Urine Nitrite NEG Urine Bilirubin NEG Urine Leukocyte Esterase NEG Urine RBC 4-9 /hpf Urine WBC 0-2 /hpf Urine Squamous Epithelial Cells 0-5 /hpf Urine Amorphous Sediment FEW Urine Bacteria FEW /hpf Microscopic Urinalysis Comment CULT NOT INDICATED Urine Collection Time 09:156 [facility] Medical Decision Making Medical Screen Exam Complete: Yes Emergency Medical Condition: Yes Differential Diagnosis Acute exacerbation of chronic back pain versus viral syndrome versus less likely influenza versus versus UTI versus other Narrative Course 26 YO F with PMH of HTN, herniated lumbar disc with sciatica presents to the ED for evaluation of 1 week history of chills, sinus congestion, clear rhinorrhea, nonproductive cough. LMP 05/11/17. Also complains of chronic back pain right- sided sciatica symptoms. No PCP. Patient is afebrile, hypertensive on presentation. Physical exam reveals a nontoxic-appearing white female in no acute distress. ENT exam is unremarkable. She has midline tenderness to palpation of the lumbar spine in the right sciatic notch. Trachea leg raise positive on the right. Patient drove here today. She's administered 100 mg ibuprofen, however milligrams Tessalon in the ED. No culture indicated of the UA. ED urine test negative. This is viral syndrome and acute exacerbation of chronic low back pain. Patient's prescribed Dagmar-D and Tessalon for the viral syndrome and ibuprofen and Flexeril for the sciatic symptoms. She is provided follow-up information for the [place] clinic. She is stable and discharged home. Diagnosis Primary Impression: Viral syndrome Additional Impression: Acute exacerbation of chronic low back pain Referrals: [facility] Patient Instructions: Chronic Back Pain (ED), General Instructions, Viral Syndrome (ED) Additional Instructions: Rest, hydrate. Push fluids such as sports drinks, Pedialyte, popsicles, clear broth. Continue with symptomatic treatment with OTC medications. Alternating ibuprofen and Tylenol every 4-6 hours as needed for body aches and fever. Return to normal, gentle activity as tolerated. A mixture of rest and activity as best for back pain. Increase handwashing frequently to avoid the spread of the virus to other family members and the community. Disinfect commonly touched surfaces such as light switches, microwaves, remote controls. Replace toothbrush at the end of this illness. Follow-up with the [facility] as discussed. Return to the ED for any urgent or emergent medical condition. Med/Other Pt SpecificInfo: Prescription(s) given Scripts Benzonatate (Benzonatate) 100 Mg Cap 200 MG PO TID Y for COUGH, #15 CAP 0 Refills Prov: Primo Salcedo MD 06/16/17 Fexofenadine-Pseudoephedrine ER 24 HR (Dagmar-D 24 Hour Allergy) 180-240 Debbie 1 TAB PO DAILY for Allergy Management, #30 TAB 0 Refills Prov: Primo Salcedo MD 06/16/17 Cyclobenzaprine (Flexeril) 5 Mg Tab 5 MG PO TID for Muscle Spasm, #15 TAB 0 Refills Prov: Primo Salcedo MD 06/16/17 Ibuprofen (Ibuprofen) 800 Mg Tab 800 MG PO Q8H Y for Pain/Inflammation, #15 TAB 0 Refills Prov: Primo Salcedo MD 06/16/17 Disposition: 01 DISCHARGE HOME Condition: Stable Crystal Kang Jun 16, 2017 09:09
[2017-06-16 09:23] LABS: BILIRUBIN, URINE NEG (NEG); BLOOD, URINE TRACE (NEG); GLUCOSE,URINE NEG (NEG); KETONE, URINE NEG (NEG); NITRITE,URINE NEG (NEG); PH, URINE 5.5 (5.0-8.5); URINE LEUKOCYTE ESTERASE NEG (NEG)
[2017-06-16] MEDS ORDERED: CYCL5TAB PO (09:23)
[2017-06-16] MEDS ORDERED: FEXO1TAB97 PO (09:23)
[2017-06-16] MEDS ORDERED: IBUP1TAB7 PO (09:23)
[2017-06-16] MEDS ORDERED: BENZ1CAP54 PO (09:23)
[2017-06-16 09:28] LABS: URINE COLOR YELLOW (YELLW/STRAW)
[2017-06-16 09:29] LABS: AMORPHOUS SEDIMENT, URINE FEW; BACTERIA, URINE FEW /hpf; SQUAMOUS EPITHELIAL CELL URINE 0-5 /hpf (0-5); WBC, URINE 0-2 /hpf (0-5)
[2017-06-16] MEDS ORDERED: IBUPROFEN 800 MG TAB PO ONE (09:30)
[2017-06-16] MEDS ORDERED: BENZONATATE 100 MG CAP PO ONE (09:30)
== END 2017-06-16 09:44 | disposition home or self-care (01) ==
LOC: PHEFT 08:52
DX: B34.9 Viral infection, unspecified (principal); M54.5 Low back pain; G89.29 Other chronic pain; I10 Essential (primary) hypertension; E03.9 Hypothyroidism, unspecified
CPT/HCPCS: 81001; 84703; 99283

== ENCOUNTER 2017-06-23 13:49 | Emergency (ER) | payer SELFPAY | END 2017-06-23 15:33 | disposition left against medical advice (07) | LOC: PHED 13:49 → PHEFT 15:33 | DX: Z53.21 Procedure and treatment not carried out due to patient leaving prior to being seen by health care provider (principal) | CPT/HCPCS: 99281 ==

== ENCOUNTER 2017-08-07 13:32 | Emergency (ER) | payer SELFPAY ==
[~2017-08-07] VITALS: Ht 154.9 cm; Wt 90.7 kg
[~2017-08-07 13:32] MED LIST changes: +CLON0.1T PO; +CYCL5TAB PO; +FEXO1TAB97 PO; -HYDR-3533 PO; +IBUP1TAB7 PO; -LABE100T2 PO
[2017-08-07 13:37] VITALS: BP 161/106; PULSE 75; RESP 16; TEMP 97.9; O2SAT 97
--- NOTE | 2017-08-07 14:13 | PD ---
HPI Chief Complaint: Complaint Time Seen by Provider: 14:05 Travel History International Travel<30 days: No Contact w/Intl Traveler<30days: No Traveled to known affect area: No History of Present Illness HPI This 27-year-old female is complaining of bilateral flank pain. She says she has been having this pain for about 3 days. Is also having headache and has had some elevation of her blood pressure. She denies any history of kidney stones but she says they run in her family. Review of previous chart shows that she has had 6-7 CT scans of the abdomen and pelvis the past few years which have not shown any kidney stones. PFSH Past Medical History Hx Anticoagulant Therapy: No Blood Disorders: No Anxiety: Yes Depression: Yes Cardiovascular Problems: Yes (HTN) High Cholesterol: Yes Diabetes: No Diminished Hearing: No Gastrointestinal Disorders: Yes Hypertension: Yes Musculoskeletal: Yes (BACK PAIN) Neurologic: Yes Reproductive: No Integumentary: Yes (FREQUENT STAPH INFECTIONS) Immunizations Current: Yes Thyroid Disease: Yes (HYPOTHYROID) Influenza Vaccination: Yes ?: Unknown LMP: 07/12/17 : 0 Para: 0 Ovarian Cysts: Yes (RIGHT) Past Surgical History Abdominal Surgery: No Cardiac Surgery: No Ear Surgery: No Endocrine Surgery: No Eye Surgery: No Genitourinary Surgery: No Gynecologic Surgery: No Neurologic Surgery: No Oral Surgery: Yes (wisdom teeth) Thoracic Surgery: No Tonsillectomy: Yes Other Surgery: Yes Social History Alcohol Use: No Tobacco Use: Yes (12ppd) Substance Use: No Allergies-Medications (Allergen,Severity, Reaction): Coded Allergies: *MDRO Multi-Drug Resistant Organism (Verified Allergy, Unknown, 06/23/17) MRSA acetaminophen (Unverified Allergy, Unknown, PT DENIES, 06/23/17) Reported Meds & Prescriptions Reported Meds & Active Scripts Active Dagmar-D 24 Hour Allergy (Fexofenadine-Pseudoephedrine ER 24 HR) 180-240 Debbie 1 Tab PO DAILY Flexeril (Cyclobenzaprine HCl) 5 Mg Tab 5 Mg PO TID Ibuprofen 800 Mg Tab 800 Mg PO Q8H PRN Reported Clonidine (Clonidine HCl) 0.1 Mg Tab 0.1 Mg PO DAILY Review of Systems General / Constitutional: No: Fever, Chills Eyes: No: Diploplia, Blurred Vision HENT: Positive: Headaches Cardiovascular: No: Chest Pain or Discomfort, Palpitations Respiratory: No: Cough Gastrointestinal: No: Nausea, Vomiting Genitourinary: Positive: Flank Pain Musculoskeletal: Positive: Myalgias, No: Arthralgias Skin: No Rash Psychiatric: No: Anxiety Endocrine: No: Heat Intolerance Hematologic/Lymphatic: No: Easy Bruising Physical Exam Narrative GENERAL: Well-developed female SKIN: Focused skin assessment warm/dry. HEAD: Atraumatic. Normocephalic. EYES: Pupils equal and round. No scleral icterus. No injection or drainage. ENT: No nasal bleeding or discharge. Mucous membranes pink and moist. NECK: Trachea midline. No JVD. CARDIOVASCULAR: Regular rate and rhythm. No murmur appreciated. RESPIRATORY: No accessory muscle use. Clear to auscultation. Breath sounds equal bilaterally. GASTROINTESTINAL: Abdomen soft, non-tender, nondistended. Hepatic and splenic margins not palpable. Bilateral CVA tenderness MUSCULOSKELETAL: No obvious deformities. No clubbing. No cyanosis. No edema. NEUROLOGICAL: Awake and alert. No obvious cranial nerve deficits. Motor grossly within normal limits. Normal speech. PSYCHIATRIC: Appropriate mood and affect; insight and judgment normal. Data Data Last Documented VS Vital Signs Date Time Temp Pulse Resp B/P (MAP) Pulse Ox O2 Delivery O2 Flow Rate FiO2 08/07/17 13:37 97.9 75 16 161/106 (124) 97 Orders Orders Urinalysis - C+S If Indicated (08/07/17 13:39) Ed Urine Pregnancytest Poc (08/07/17 13:39) Complete Blood Count With Diff (08/07/17 14:09) Basic Metabolic Panel (Bmp) (08/07/17 14:09) Sodium Chlor 0.9% 1000 Ml Inj (Ns 1000 M (08/07/17 14:15) Ondansetron Inj (Zofran Inj) (08/07/17 14:15) Ketorolac Inj (Toradol Inj) (08/07/17 14:15) Labs Laboratory Tests Test 08/07/17 13:45 08/07/17 14:15 Urine Collection Type CLEAN CATCH Urine Color YELLOW Urine Turbidity CLEAR Urine pH 7.0 Urine Specific [place] 1.010 Urine Protein NEG mg/dL Urine Glucose (UA) NEG mg/dL Urine Ketones NEG mg/dL Urine Occult Blood TRACE Urine Nitrite NEG Urine Bilirubin NEG Urine Urobilinogen 0.2 MG/DL Urine Leukocyte Esterase NEG Urine RBC 0-3 /hpf Urine WBC 0-2 /hpf Urine Squamous Epithelial Cells 6-8 /hpf Microscopic Urinalysis Comment CULT NOT INDICATED Urine Collection Time 13:45 White Blood Count 8.4 TH/MM3 Red Blood Count 5.34 MIL/MM3 Hemoglobin 16.3 GM/DL Hematocrit 46.9 % Mean Corpuscular Volume 87.7 FL Mean Corpuscular Hemoglobin 30.6 PG Mean Corpuscular Hemoglobin Concent 34.9 % Red Cell Distribution Width 13.5 % Platelet Count 247 TH/MM3 Mean Platelet Volume 7.2 FL Neutrophils (%) (Auto) 58.8 % Lymphocytes (%) (Auto) 33.6 % Monocytes (%) (Auto) 4.4 % Eosinophils (%) (Auto) 2.4 % Basophils (%) (Auto) 0.8 % Neutrophils # (Auto) 4.9 TH/MM3 Lymphocytes # (Auto) 2.8 TH/MM3 Monocytes # (Auto) 0.4 TH/MM3 Eosinophils # (Auto) 0.2 TH/MM3 Basophils # (Auto) 0.1 TH/MM3 CBC Comment DIFF FINAL Differential Comment Blood Urea Nitrogen 13 MG/DL Creatinine 0.81 MG/DL Random Glucose 103 MG/DL Calcium Level 8.7 MG/DL Sodium Level 139 MEQ/L Potassium Level 4.0 MEQ/L Chloride Level 106 MEQ/L Carbon Dioxide Level 27.0 MEQ/L Anion Gap 6 MEQ/L Estimat Glomerular Filtration Rate 84 ML/MIN MDM Medical Decision Making Medical Screen Exam Complete: Yes Emergency Medical Condition: Yes Medical Record Reviewed: Yes Differential Diagnosis Differential includes renal colic, UTI, nonspecific pain Narrative Course Patient was given to a CT scan however review of the chart shows that he has had multiple CT scans recently including one 6 months ago. Urine is negative. Blood work is unremarkable. She is stable for discharge Diagnosis Primary Impression: Musculoskeletal flank carmel Additional Impression: Flank pain Scripts Meloxicam (Mobic) 7.5 Mg Tab 7.5 MG PO DAILY for Pain for 10 Days, #10 TAB 0 Refills Prov: Kamari Lawton MD 08/07/17 Disposition: 01 DISCHARGE HOME Condition: Stable Kamari Lawton MD Aug 07, 2017 14:13
[2017-08-07] MEDS ORDERED: SODIUM CHLOR 0.9% 1000 ML INJ 1,000 ML IV ONE (14:15)
[2017-08-07] MEDS ORDERED: KETOROLAC TROMETHAMINE 30 MG/ML (IVP) VIAL IV PUSH ONE (14:15)
[2017-08-07] MEDS ORDERED: ONDANSETRON HCL 4 MG/2 ML VIAL IV PUSH ONE (14:15)
[2017-08-07 14:23] LABS: AUTOMATED NEUTROPHIL # 4.9 TH/MM3 (1.8-7.7); BASOPHIL # 0.1 TH/MM3 (0-0.2); BASOPHIL % 0.8 % (0.0-2.0); EOSINOPHIL # 0.2 TH/MM3 (0-0.4); EOSINOPHIL % 2.4 % (0.0-4.0); HEMATOCRIT 46.9 % (35.0-46.0); HEMOGLOBIN 16.3 GM/DL (11.6-15.3); LYMPH % 33.6 % (9.0-44.0); LYMPHOCYTE # 2.8 TH/MM3 (1.0-4.8); MEAN CELL VOLUME 87.7 FL (80.0-100.0); MEAN CORPUSCULAR HEMOGLOBIN 30.6 PG (27.0-34.0); MEAN CORPUSCULAR HGB CONC 34.9 % (32.0-36.0); MEAN PLATELET VOLUME 7.2 FL (7.0-11.0); MONO % 4.4 % (0.0-8.0); MONOCYTE # 0.4 TH/MM3 (0-0.9); NEUT % 58.8 % (16.0-70.0); PLATELET COUNT 247 TH/MM3 (150-450); RED BLOOD COUNT 5.34 MIL/MM3 (4.00-5.30); RED CELL DISTRIBUTION WIDTH 13.5 % (11.6-17.2); WHITE BLOOD COUNT 8.4 TH/MM3 (4.0-11.0)
[2017-08-07 14:31] LABS: BILIRUBIN, URINE NEG (NEG); BLOOD, URINE TRACE (NEG); GLUCOSE,URINE NEG (NEG); KETONE, URINE NEG (NEG); NITRITE,URINE NEG (NEG); URINE COLOR YELLOW (YELLW/STRAW); URINE LEUKOCYTE ESTERASE NEG (NEG)
[2017-08-07 14:36] LABS: CALCIUM 8.7 MG/DL (8.5-10.1)
[2017-08-07 14:36] LABS: RBC, URINE 0-3 /hpf (0-3); WBC, URINE 0-2 /hpf (0-5)
[2017-08-07 14:40] LABS: CREATININE 0.81 MG/DL (0.50-1.00)
[2017-08-07] MEDS ORDERED: MOBI7.5T PO (15:03)
[2017-08-07 15:20] VITALS: RESP 18
== END 2017-08-07 15:32 | disposition home or self-care (01) ==
LOC: PHED 13:32
DX: R10.9 Unspecified abdominal pain (principal); I10 Essential (primary) hypertension; E03.9 Hypothyroidism, unspecified; E78.00 Pure hypercholesterolemia, unspecified; F32.9 Major depressive disorder, single episode, unspecified; F17.210 Nicotine dependence, cigarettes, uncomplicated
CPT/HCPCS: 80048; 81001; 84703; 85025; 96361; 96374; 96375; 99284; J1885; J2405; J7030

== ENCOUNTER 2017-10-06 18:33 | Emergency (ER) | payer SELFPAY ==
[~2017-10-06] VITALS: Ht 154.9 cm; Wt 91.0 kg
[~2017-10-06 18:33] MED LIST changes: +MOBI7.5T PO
[2017-10-06 18:36] VITALS: BP 173/106; PULSE 96; RESP 18; TEMP 97.8; O2SAT 100
[2017-10-06] MEDS ORDERED: KETOROLAC TROMETHAMINE 60 MG/2 ML (IM) VIAL IM ONE (19:00)
--- NOTE | 2017-10-06 19:03 | PD ---
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 States last night after she got off work she was standing on some stairs when she fell to her bottom. Denies any head trauma or LOC. States she previously had intermittent numbness that was positional to the right lower extremity. States since her fall it seems to be occurring more frequently. Additionally she reports urinary frequency pain and hematuria as well as vaginal discomfort. Reports bleeding without discharge. She is sexually active. One partner. Denies any nausea vomiting diarrhea or fever. No new rashes. Denies . PFSH Past Medical History Hx Anticoagulant Therapy: No Autoimmune Disease: No Blood Disorders: No Anxiety: Yes Depression: Yes Cardiovascular Problems: Yes (HTN) High Cholesterol: Yes Diabetes: No Diminished Hearing: No Gastrointestinal Disorders: Yes Hypertension: Yes Musculoskeletal: Yes (BACK PAIN "I HAVE BULGING DISCS AND SCIATIC PAIN, RIGHT SIDE") Neurologic: Yes Reproductive: No Integumentary: Yes (FREQUENT STAPH INFECTIONS) Immunizations Current: Yes Thyroid Disease: Yes (HYPOTHYROID) Influenza Vaccination: Yes ?: Unknown LMP: 09/05/17 : 0 Para: 0 Ovarian Cysts: Yes (RIGHT) Past Surgical History Abdominal Surgery: No Cardiac Surgery: No Ear Surgery: No Endocrine Surgery: No Eye Surgery: No Genitourinary Surgery: No Gynecologic Surgery: No Neurologic Surgery: No Oral Surgery: Yes (wisdom teeth) Thoracic Surgery: No Tonsillectomy: Yes Other Surgery: Yes Social History Alcohol Use: No Tobacco Use: Yes (1/2ppd) Substance Use: Yes (STATED 10/06/17 "I SMOKE WEED EVERY ONCE IN AWHILE") Allergies-Medications (Allergen,Severity, Reaction): Coded Allergies: *MDRO Multi-Drug Resistant Organism (Verified Allergy, Unknown, 10/06/17) MRSA acetaminophen (Unverified Allergy, Unknown, PT DENIES, 10/06/17) Reported Meds & Prescriptions Reported Meds & Active Scripts Active No Active Prescriptions or Reported Medications Review of Systems General / Constitutional: No: Fever Eyes: No: Visual changes HENT: No: Headaches Cardiovascular: No: Chest Pain or Discomfort Respiratory: No: Shortness of Breath Gastrointestinal: No: Abdominal Pain Genitourinary: Positive: Urgency, Frequency, Hematuria, No: Dysuria Musculoskeletal: Positive: Pain Skin: No Rash Neurologic: No: Weakness Psychiatric: No: Depression Endocrine: No: Polydipsia Hematologic/Lymphatic: No: Easy Bruising Physical Exam Narrative GENERAL: Well-nourished, well-developed patient. SKIN: Focused skin assessment warm/dry. HEAD: Normocephalic. EYES: No scleral icterus. No injection or drainage. NECK: Supple, trachea midline. No JVD or lymphadenopathy. CARDIOVASCULAR: Regular rate and rhythm without murmurs, gallops, or rubs. RESPIRATORY: Breath sounds equal bilaterally. No accessory muscle use. GASTROINTESTINAL: Abdomen soft, non-tender, nondistended. MUSCULOSKELETAL: No cyanosis, or edema. Examination lumbar sacral spine reveals minimal midline tenderness with right- sided paraspinous pain negative straight leg raise BACK: Nontender without obvious deformity. No CVA tenderness. Vaginal exam reveals vaginal mucosa pink moist and healthy in appearance with a slight red tinge discharge characteristic of yeast infection, negative chandelier's Data Data Last Documented VS Vital Signs Date Time Temp Pulse Resp B/P (MAP) Pulse Ox O2 Delivery O2 Flow Rate FiO2 10/06/17 19:40 74 18 144/98 (113) 98 Room Air 10/06/17 18:36 97.8 Orders Orders Spine, Lumbar - Ltd (Ap & Lat) (10/06/17 ) Urinalysis - C+S If Indicated (10/06/17 18:57) Ketorolac Inj (Toradol Inj) (10/06/17 19:00) Wet Prep Profile (10/06/17 19:43) Gc And Chlamydia Pcr (10/06/17 19:47) Labs Laboratory Tests Test 10/06/17 18:50 10/06/17 19:45 Urine Color YELLOW Urine Turbidity CLOUDY Urine pH 7.5 Urine Specific [place] 1.010 Urine Protein TRACE mg/dL Urine Glucose (UA) NEG mg/dL Urine Ketones NEG mg/dL Urine Occult Blood LARGE Urine Nitrite NEG Urine Bilirubin NEG Urine Urobilinogen 0.2 MG/DL Urine Leukocyte Esterase MOD Urine RBC 3-5 /hpf Urine WBC 6-8 /hpf Urine Squamous Epithelial Cells > 8 /hpf Urine Amorphous Sediment LARGE Urine Bacteria OCC /hpf Microscopic Urinalysis Comment CULT NOT INDICATED Clue Cells (Wet Prep) NONE SEEN Vaginal Trichomonas (Wet Prep) NONE SEEN Vaginal Yeast (Wet Prep) PRESENT MDM Medical Decision Making Medical Screen Exam Complete: Yes Emergency Medical Condition: Yes Differential Diagnosis Lumbar sacral degenerative disc disease, vertebral fracture, UTI, malingering Narrative Course Assessment and plan discussed with patient at bedside. Wet prep came back positive for yeast. Gonorrhea and chlamydia pending Last 72 hours Impressions Lumbar Spine X-Ray 10/06/17 0000 Signed Impressions: Service Date/Time: Friday, October 06, 2017 19:01 - CONCLUSION: 1. No acute compression fracture, spondylolisthesis or spondylolysis of lumbar spine. 2. Mild probable chronic compression deformity involving T11. 3. Mild scoliosis of the lumbar spine. Primo Long MD Diagnosis Primary Impression: Low back pain Qualified Codes: M54.41 - Lumbago with sciatica, right side; G89.29 - Other chronic pain Additional Impressions: Dysuria Yeast infection Patient Instructions: General Instructions Additional Instructions: Encourage nonsteroidal anti-inflammatories warm heat gentle stretching strengthening and massage. Antibiotic as prescribed. Encourage fluids and a cranberry supplement. Oral Diflucan as directed. Follow-up with PCP. Return to emerge from with any onset of new symptoms. Scripts Fluconazole (Diflucan) 150 Mg Tab 150 MG PO DAILY for Infection, #2 TAB 0 Refills Prov: John Ardon MD 10/06/17 Ciprofloxacin (Cipro) 500 Mg Tab 500 MG PO BID for Infection for 3 Days, #6 TAB 0 Refills Prov: John Ardon MD 10/06/17 Cyclobenzaprine (Flexeril) 5 Mg Tab 5 MG PO TID for Muscle Spasm, #15 TAB 0 Refills Prov: John Ardon MD 10/06/17 Meloxicam (Mobic) 7.5 Mg Tab 7.5 MG PO DAILY for Pain for 10 Days, #10 TAB 0 Refills Prov: John Ardon MD 10/06/17 Disposition: 01 DISCHARGE HOME Condition: Good John Ardon MD October 06, 2017 19:03
[2017-10-06 19:20] LABS: BILIRUBIN, URINE NEG (NEG); BLOOD, URINE LARGE (NEG); GLUCOSE,URINE NEG (NEG); KETONE, URINE NEG (NEG); NITRITE,URINE NEG (NEG); PH, URINE 7.5 (5.0-8.5); URINE COLOR YELLOW (YELLW/STRAW); URINE LEUKOCYTE ESTERASE MOD (NEG)
[2017-10-06 19:25] LABS: AMORPHOUS SEDIMENT, URINE LARGE; BACTERIA, URINE OCC /hpf; SQUAMOUS EPITHELIAL CELL URINE > 8 /hpf (0-5)
--- NOTE | 2017-10-06 19:38 | RADRPT ---
EXAM DATE/TIME: 10/06/2017 19:01 [facility] COMPARISON: No previous studies available for comparison. INDICATIONS : Degenerative disc disease. Patient fell two days ago and complains of right sided lower lumbar pain. MEDICAL HISTORY : Hypothyroidism. Hypertension. Ovarian cysts SURGICAL HISTORY : None. ENCOUNTER: Initial ACUITY: 2 days PAIN SCORE: 8/10 LOCATION: L-spine. FINDINGS: There is no acute compression fracture, spondylolisthesis or spondylolysis of the lumbar spine. Mild compression deformity involving T11 is noted and is likely chronic. Mild scoliosis of the lumbar spin e is noted. CONCLUSION: 1. No acute compression fracture, spondylolisthesis or spondylolysis of lumbar spine. 2. Mild probable chronic compression deformity involving T11. 3. Mild scoliosis of the lumbar spine. Primo Long MD on October 06, 2017 at 19:34 Board Certified Radiologist. This report was verified electronically.
[2017-10-06 19:40] VITALS: BP 144/98; PULSE 74; RESP 18; O2SAT 98
[2017-10-06] MEDS ORDERED: DIFL150T PO (20:35)
[2017-10-06] MEDS ORDERED: CIPR-9 PO (20:35)
[2017-10-06] MEDS ORDERED: MOBI7.5T PO (20:35)
[2017-10-06] MEDS ORDERED: CYCL5TAB PO (20:35)
== END 2017-10-06 20:50 | disposition home or self-care (01) ==
LOC: PHED 18:33
DX: M54.41 Lumbago with sciatica, right side (principal); G89.29 Other chronic pain; B37.3 Candidiasis of vulva and vagina; R30.0 Dysuria; E03.9 Hypothyroidism, unspecified; E78.00 Pure hypercholesterolemia, unspecified; I10 Essential (primary) hypertension; F17.200 Nicotine dependence, unspecified, uncomplicated; F12.90 Cannabis use, unspecified, uncomplicated
CPT/HCPCS: 72100; 81001; 87210; 87491; 87591; 96372; 99284; J1885

== ENCOUNTER 2017-10-20 15:51 | Emergency (ER) | payer SELFPAY ==
[~2017-10-20] VITALS: Ht 154.9 cm; Wt 85.0 kg
[~2017-10-20 15:51] MED LIST changes: +CIPR-9 PO; -CLON0.1T PO; +DIFL150T PO; -FEXO1TAB97 PO; -IBUP1TAB7 PO
[2017-10-20 16:01] VITALS: BP 179/107; PULSE 98; TEMP 99.1
--- NOTE | 2017-10-20 16:21 | PD ---
HPI Chief Complaint: Psychiatric Symptoms Time Seen by Provider: 16:20 Travel History International Travel<30 days: No Contact w/Intl Traveler<30days: No Traveled to known affect area: No History of Present Illness HPI 27-year-old female presents emergency department under Scherer act for psychiatric evaluation. Patient states that she has been chosen second after drugs. She tells me that her and her boyfriend are not getting along. She threatened suicide in response to her feelings being hurt, but states she did not mean this. She reports occasional illicit drug use but not recently. Denies any acute medical needs. States she is currently on her menses. She has no other symptoms to report at this time. PFSH Past Medical History Hx Anticoagulant Therapy: No Autoimmune Disease: No Blood Disorders: No Anxiety: Yes Depression: Yes Cardiovascular Problems: Yes (HTN) High Cholesterol: Yes Diabetes: No Diminished Hearing: No Gastrointestinal Disorders: Yes Hypertension: Yes Musculoskeletal: Yes (BACK PAIN "I HAVE BULGING DISCS AND SCIATIC PAIN, RIGHT SIDE") Neurologic: Yes Reproductive: No Integumentary: Yes (FREQUENT STAPH INFECTIONS) Immunizations Current: Yes Thyroid Disease: Yes (HYPOTHYROID) ?: Not : 0 Para: 0 Ovarian Cysts: Yes (RIGHT) Past Surgical History Abdominal Surgery: No Cardiac Surgery: No Ear Surgery: No Endocrine Surgery: No Eye Surgery: No Genitourinary Surgery: No Gynecologic Surgery: No Neurologic Surgery: No Oral Surgery: Yes (wisdom teeth) Thoracic Surgery: No Tonsillectomy: Yes Other Surgery: Yes Social History Alcohol Use: No Tobacco Use: Yes (1/2ppd) Substance Use: Yes (STATED 10/06/17 "I SMOKE WEED EVERY ONCE IN AWHILE") Allergies-Medications (Allergen,Severity, Reaction): Coded Allergies: ibuprofen (Verified Allergy, Mild, Itching, 10/20/17) *MDRO Multi-Drug Resistant Organism (Verified Allergy, Unknown, 10/06/17) MRSA acetaminophen (Unverified Allergy, Unknown, PT DENIES, 10/06/17) Reported Meds & Prescriptions Reported Meds & Active Scripts Active Review of Systems Except as stated in HPI: all other systems reviewed are Neg Physical Exam Narrative GENERAL: Nourished female patient, tearful but in no acute distress. SKIN: Focused skin assessment warm/dry. Self-inflicted superficial lacerations to the left anterior forearm. There is a superficial laceration to the left middle finger. Bleeding is controlled. No significant erythema or edema. HEAD: Atraumatic. Normocephalic. EYES: Pupils equal and round. No scleral icterus. No injection or drainage. ENT: No nasal bleeding or discharge. Mucous membranes pink and moist. NECK: Trachea midline. No JVD. CARDIOVASCULAR: Tachycardic rate and rhythm. No murmur appreciated. RESPIRATORY: No accessory muscle use. Clear to auscultation. Breath sounds equal bilaterally. GASTROINTESTINAL: Abdomen soft, non-tender, nondistended. Hepatic and splenic margins not palpable. MUSCULOSKELETAL: No obvious deformities. No clubbing. No cyanosis. No edema. NEUROLOGICAL: Awake and alert. No obvious cranial nerve deficits. Motor grossly within normal limits. Normal speech. Data Data Last Documented VS Vital Signs Date Time Temp Pulse Resp B/P (MAP) Pulse Ox O2 Delivery O2 Flow Rate FiO2 10/20/17 19:09 98.2 60 18 156/87 (110) 100 Room Air Orders Orders Psych Screen (10/20/17 15:59) Complete Blood Count With Diff (10/20/17 16:20) Thyroid Stimulating Hormone (10/20/17 16:20) Basic Metabolic Panel (Bmp) (10/20/17 16:20) Ed Urine Pregnancytest Poc (10/20/17 16:20) Drug Screen, Random Urine (10/20/17 16:20) Alcohol (Ethanol) (10/20/17 16:20) Olanzapine Inj (Zyprexa Inj) (10/20/17 21:15) Labs Laboratory Tests Test 10/20/17 16:10 10/20/17 19:05 White Blood Count 13.8 TH/MM3 Red Blood Count 5.56 MIL/MM3 Hemoglobin 16.8 GM/DL Hematocrit 49.2 % Mean Corpuscular Volume 88.4 FL Mean Corpuscular Hemoglobin 30.3 PG Mean Corpuscular Hemoglobin Concent 34.3 % Red Cell Distribution Width 13.2 % Platelet Count 272 TH/MM3 Mean Platelet Volume 7.6 FL Neutrophils (%) (Auto) 76.8 % Lymphocytes (%) (Auto) 18.4 % Monocytes (%) (Auto) 4.1 % Eosinophils (%) (Auto) 0.4 % Basophils (%) (Auto) 0.3 % Neutrophils # (Auto) 10.6 TH/MM3 Lymphocytes # (Auto) 2.5 TH/MM3 Monocytes # (Auto) 0.6 TH/MM3 Eosinophils # (Auto) 0.1 TH/MM3 Basophils # (Auto) 0.0 TH/MM3 CBC Comment DIFF FINAL Differential Comment Blood Urea Nitrogen 20 MG/DL Creatinine 1.13 MG/DL Random Glucose 97 MG/DL Calcium Level 9.6 MG/DL Sodium Level 141 MEQ/L Potassium Level 4.0 MEQ/L Chloride Level 106 MEQ/L Carbon Dioxide Level 24.0 MEQ/L Anion Gap 11 MEQ/L Estimat Glomerular Filtration Rate 57 ML/MIN Thyroid Stimulating Hormone 3rd Gen 1.270 uIU/ML Ethyl Alcohol Level LESS THAN 3 MG/DL Urine Opiates Screen NEG Urine Barbiturates Screen NEG Urine Amphetamines Screen POS Urine Benzodiazepines Screen NEG Urine Cocaine Screen NEG Urine Cannabinoids Screen POS MDM Medical Decision Making Medical Screen Exam Complete: Yes Emergency Medical Condition: Yes Medical Record Reviewed: Yes Differential Diagnosis Anxiety versus mood disorder versus personality disorder versus substance abuse Narrative Course 27-year-old female presents emergency department for evaluation under Scherer act. Patient appears tearful but without distress. She is mildly tachycardic but otherwise her vital signs are stable. Laboratory Tests Test 10/20/17 16:10 10/20/17 19:05 White Blood Count 13.8 TH/MM3 Red Blood Count 5.56 MIL/MM3 Hemoglobin 16.8 GM/DL Hematocrit 49.2 % Mean Corpuscular Volume 88.4 FL Mean Corpuscular Hemoglobin 30.3 PG Mean Corpuscular Hemoglobin Concent 34.3 % Red Cell Distribution Width 13.2 % Platelet Count 272 TH/MM3 Mean Platelet Volume 7.6 FL Neutrophils (%) (Auto) 76.8 % Lymphocytes (%) (Auto) 18.4 % Monocytes (%) (Auto) 4.1 % Eosinophils (%) (Auto) 0.4 % Basophils (%) (Auto) 0.3 % Neutrophils # (Auto) 10.6 TH/MM3 Lymphocytes # (Auto) 2.5 TH/MM3 Monocytes # (Auto) 0.6 TH/MM3 Eosinophils # (Auto) 0.1 TH/MM3 Basophils # (Auto) 0.0 TH/MM3 CBC Comment DIFF FINAL Differential Comment Blood Urea Nitrogen 20 MG/DL Creatinine 1.13 MG/DL Random Glucose 97 MG/DL Calcium Level 9.6 MG/DL Sodium Level 141 MEQ/L Potassium Level 4.0 MEQ/L Chloride Level 106 MEQ/L Carbon Dioxide Level 24.0 MEQ/L Anion Gap 11 MEQ/L Estimat Glomerular Filtration Rate 57 ML/MIN Thyroid Stimulating Hormone 3rd Gen 1.270 uIU/ML Ethyl Alcohol Level LESS THAN 3 MG/DL Urine Opiates Screen NEG Urine Barbiturates Screen NEG Urine Amphetamines Screen POS Urine Benzodiazepines Screen NEG Urine Cocaine Screen NEG Urine Cannabinoids Screen POS Patient is with mild eczematous to 13.8. Otherwise CBC is without acute concern. Toxicology is positive for amphetamines and cannabinoids. Patient is medically cleared to undergo psychiatric screening for further evaluation and disposition. Mental health screening discussed with the patient. Psychiatric screen ordered. Diagnosis Primary Impression: Substance induced mood disorder Condition: Stable Aimee Jackson October 20, 2017 16:21
[2017-10-20 17:28] LABS: AUTOMATED NEUTROPHIL # 10.6 TH/MM3 (1.8-7.7); BASOPHIL % 0.3 % (0.0-2.0); EOSINOPHIL # 0.1 TH/MM3 (0-0.4); EOSINOPHIL % 0.4 % (0.0-4.0); HEMATOCRIT 49.2 % (35.0-46.0); HEMOGLOBIN 16.8 GM/DL (11.6-15.3); LYMPH % 18.4 % (9.0-44.0); LYMPHOCYTE # 2.5 TH/MM3 (1.0-4.8); MEAN CELL VOLUME 88.4 FL (80.0-100.0); MEAN CORPUSCULAR HEMOGLOBIN 30.3 PG (27.0-34.0); MEAN CORPUSCULAR HGB CONC 34.3 % (32.0-36.0); MEAN PLATELET VOLUME 7.6 FL (7.0-11.0); MONO % 4.1 % (0.0-8.0); MONOCYTE # 0.6 TH/MM3 (0-0.9); NEUT % 76.8 % (16.0-70.0); PLATELET COUNT 272 TH/MM3 (150-450); RED BLOOD COUNT 5.56 MIL/MM3 (4.00-5.30); RED CELL DISTRIBUTION WIDTH 13.2 % (11.6-17.2); WHITE BLOOD COUNT 13.8 TH/MM3 (4.0-11.0)
[2017-10-20 17:52] LABS: BLOOD UREA NITROGEN 20 MG/DL (7-18); CALCIUM 9.6 MG/DL (8.5-10.1); CHLORIDE 106 MEQ/L (98-107); CREATININE 1.13 MG/DL (0.50-1.00); GLOMERULAR FILTRATION RATE 57 ML/MIN (>89); GLUCOSE,RANDOM 97 MG/DL (74-106); SODIUM (NA) 141 MEQ/L (136-145)
[2017-10-20 18:06] VITALS: BP 181/122; PULSE 91; RESP 18; O2SAT 98
[2017-10-20 19:09] VITALS: BP 156/87; PULSE 60; RESP 18; TEMP 98.2; O2SAT 100
[2017-10-20] MEDS ORDERED: OLANZapine IM 10 MG VIAL IM ONE (21:15)
[2017-10-21 01:00] VITALS: BP 160/92; PULSE 103; RESP 18; TEMP 98.4; O2SAT 97
[2017-10-21 03:18] VITALS: BP 160/92; PULSE 103; RESP 18; TEMP 98.4; O2SAT 97
[2017-10-21 06:51] VITALS: BP 131/81; PULSE 81; RESP 18; TEMP 97.8; O2SAT 99
--- NOTE | 2017-10-21 08:54 | PD ---
Physical Exam Time Seen by Provider: 08:[address] Souza has evaluated the patient, lifted the Scherer act and cleared the patient for discharge. Data Data Last Documented VS Vital Signs Date Time Temp Pulse Resp B/P (MAP) Pulse Ox O2 Delivery O2 Flow Rate FiO2 10/21/17 06:51 97.8 81 18 131/81 (98) 99 Room Air Orders Orders Psych Screen (10/20/17 15:59) Complete Blood Count With Diff (10/20/17 16:20) Thyroid Stimulating Hormone (10/20/17 16:20) Basic Metabolic Panel (Bmp) (10/20/17 16:20) Ed Urine Pregnancytest Poc (10/20/17 16:20) Drug Screen, Random Urine (10/20/17 16:20) Alcohol (Ethanol) (10/20/17 16:20) Olanzapine Inj (Zyprexa Inj) (10/20/17 21:15) Diet Regular Basic (10/21/17 Breakfast) Labs Laboratory Tests Test 10/20/17 16:10 10/20/17 19:05 White Blood Count 13.8 TH/MM3 Red Blood Count 5.56 MIL/MM3 Hemoglobin 16.8 GM/DL Hematocrit 49.2 % Mean Corpuscular Volume 88.4 FL Mean Corpuscular Hemoglobin 30.3 PG Mean Corpuscular Hemoglobin Concent 34.3 % Red Cell Distribution Width 13.2 % Platelet Count 272 TH/MM3 Mean Platelet Volume 7.6 FL Neutrophils (%) (Auto) 76.8 % Lymphocytes (%) (Auto) 18.4 % Monocytes (%) (Auto) 4.1 % Eosinophils (%) (Auto) 0.4 % Basophils (%) (Auto) 0.3 % Neutrophils # (Auto) 10.6 TH/MM3 Lymphocytes # (Auto) 2.5 TH/MM3 Monocytes # (Auto) 0.6 TH/MM3 Eosinophils # (Auto) 0.1 TH/MM3 Basophils # (Auto) 0.0 TH/MM3 CBC Comment DIFF FINAL Differential Comment Blood Urea Nitrogen 20 MG/DL Creatinine 1.13 MG/DL Random Glucose 97 MG/DL Calcium Level 9.6 MG/DL Sodium Level 141 MEQ/L Potassium Level 4.0 MEQ/L Chloride Level 106 MEQ/L Carbon Dioxide Level 24.0 MEQ/L Anion Gap 11 MEQ/L Estimat Glomerular Filtration Rate 57 ML/MIN Thyroid Stimulating Hormone 3rd Gen 1.270 uIU/ML Ethyl Alcohol Level LESS THAN 3 MG/DL Urine Opiates Screen NEG Urine Barbiturates Screen NEG Urine Amphetamines Screen POS Urine Benzodiazepines Screen NEG Urine Cocaine Screen NEG Urine Cannabinoids Screen POS MDM Supervised Visit with NIKKI: No Narrative Course Dr. Souza has evaluated the patient, lifted the Scherer act and cleared the patient for discharge. Patient contracts safety. Denies suicidal or homicidal ideations. Patient will be provided community resource packet to [facility] for follow-up. Has friends and family for support. Patient was medically cleared by alternate provider prior to psych screening. Patient has been evaluated by psychiatry and and is now cleared for discharge. Diagnosis Primary Impression: Substance induced mood disorder Additional Impression: Polysubstance abuse Referrals: [facility] (Out patient) [facility] Primary Care Physician Psychiatrist [facility] Patient Instructions: General Instructions, Mood Disorders (ED), Polysubstance Abuse (ED) Additional Instruction: Contract safety to your self and others Follow-up with psychiatry Follow-up with primary care provider Follow-up with Jagjit Olivas Return to the emergency department immediately with worsening of symptoms Med/Other Pt SpecificInfo: No Change to Meds, No Meds Exist/No RX given Disposition: 01 DISCHARGE HOME Condition: Stable Marie Gregory October 21, 2017 08:54
--- NOTE | 2017-10-21 08:59 | PD.PSY.CON ---
Provisional Diagnosis Admission Date Date of consultation 10/21/2017. [place]. 1. Adjustment disorder with mixed disturbance of emotions and conduct 2. Polysubstance abuse [place] II. 1. Borderline personality traits History of Present Illness Service Psychiatry Consult Requested By Emergency department Reason for Consult Scherer act Primary Care Physician No Primary Care Physician HPI Ms. Webb is a 27-year-old female with no reported previous psychiatric diagnosis who presents under a Scherer act alleging that she threatened to family to kill herself by throwing a toaster in the bath. Patient's urine toxicology is positive for amphetamines and cannabinoids. Reviewing the electronic medical record, I note that the patient was seen by the psychiatric nurse practitioner in 2017 following an episode of nonsuicidal self-injurious behavior while intoxicated. Patient seen and examined. Chart reviewed. Case discussed with nursing staff. On my examination today, the patient reports "every single time I [do drugs] I freak out." She reports that she tried methamphetamine for the first time and this is what led to her presentation here. She notes that her boyfriend has been doing drugs behind her back, and she got into an argument with boyfriend, and, in her intoxicated state, this is what occasioned her suicidal threat. She denies that she had any genuine suicidal intent at the time. She denies any suicidal or homicidal ideation, intent or plan now. She contracts for safety. She notes "now that I have had some sleep and I am clear minded, I realize he is not worth it. He is not worth hurting myself over." I can elicit no depressive or hypomanic/manic symptoms. She denies any audiovisual hallucinations. I can elicit no delusional material. There is no evidence of any impairment in reality construction. Cluster B personality traits noted. The remainder of the psychiatric ROS is negative. She has no acute physical complaints. She is requesting discharge from the emergency room this morning. Past psychiatric history: The patient denies a history of psychiatric diagnosis. She is not currently under the care of a psychiatrist but is open to a referral for mental health services. She was psychiatrically admitted, it appears to [facility] in the past but not recently. She denies a history of suicide attempts but does report a history of nonsuicidal self-injurious behavior. Family history: The patient reports that her sister has some sort of mental illness. Both of her parents abused drugs and as a consequence of their substance use. She denies any family history of suicide. Chemical dependency history: The patient notes that she smokes cannabis "all the time." She reports that she tried methamphetamine for the first time last night, 2 lines. She seems pre-contemplative with regards to her desire to change her pattern of substance use. Social history: The patient reports that she was "abandoned" by her parents. She was raised by her grandmother. She has a boyfriend. No children. 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 She works at the [email or web address]. She denies any access to guns or firearms. Review of Systems Except as stated in HPI: all other systems reviewed are Neg Past Family Social History Coded Allergies: ibuprofen (Verified Allergy, Mild, Itching, 10/20/17) *MDRO Multi-Drug Resistant Organism (Verified Allergy, Unknown, 10/06/17) MRSA acetaminophen (Unverified Allergy, Unknown, PT DENIES, 10/06/17) Past Medical History See electronic medical record Discontinued Scripts Fluconazole (Diflucan) 150 Mg Tab, 150 MG PO DAILY for Infection, #2 TAB 0 Refills Prov:John Ardon MD 10/06/17 Ciprofloxacin (Cipro) 500 Mg Tab, 500 MG PO BID for Infection for 3 Days, #6 TAB 0 Refills Prov:John Ardon MD 10/06/17 Cyclobenzaprine (Flexeril) 5 Mg Tab, 5 MG PO TID for Muscle Spasm, #15 TAB 0 Refills Prov:John Ardon MD 10/06/17 Meloxicam (Mobic) 7.5 Mg Tab, 7.5 MG PO DAILY for Pain for 10 Days, #10 TAB 0 Refills Prov:John Ardon MD 10/06/17 Patient's Strengths (min. 2) Attending to basic needs. Verbally fluent. Physical Exam Physical exam completed by the ED provider. On my examination today, the patient appears to be in no acute physical distress. I do note some superficial scratches in varying stages of healing on her left forearm. No deep cuts or lacerations noted. No motor abnormalities noted. No signs of intoxication or withdrawal noted. Labs and vitals reviewed: Vital Signs Vital Signs Date Time Temp Pulse Resp B/P (MAP) Pulse Ox O2 Delivery O2 Flow Rate FiO2 10/21/17 06:51 97.8 81 18 131/81 (98) 99 Room Air Lab Results Test 10/20/17 16:10 10/20/17 19:05 White Blood Count 13.8 TH/MM3 Red Blood Count 5.56 MIL/MM3 Hemoglobin 16.8 GM/DL Hematocrit 49.2 % Mean Corpuscular Volume 88.4 FL Mean Corpuscular Hemoglobin 30.3 PG Mean Corpuscular Hemoglobin Concent 34.3 % Red Cell Distribution Width 13.2 % Platelet Count 272 TH/MM3 Mean Platelet Volume 7.6 FL Neutrophils (%) (Auto) 76.8 % Lymphocytes (%) (Auto) 18.4 % Monocytes (%) (Auto) 4.1 % Eosinophils (%) (Auto) 0.4 % Basophils (%) (Auto) 0.3 % Neutrophils # (Auto) 10.6 TH/MM3 Lymphocytes # (Auto) 2.5 TH/MM3 Monocytes # (Auto) 0.6 TH/MM3 Eosinophils # (Auto) 0.1 TH/MM3 Basophils # (Auto) 0.0 TH/MM3 CBC Comment DIFF FINAL Differential Comment Blood Urea Nitrogen 20 MG/DL Creatinine 1.13 MG/DL Random Glucose 97 MG/DL Calcium Level 9.6 MG/DL Sodium Level 141 MEQ/L Potassium Level 4.0 MEQ/L Chloride Level 106 MEQ/L Carbon Dioxide Level 24.0 MEQ/L Anion Gap 11 MEQ/L Estimat Glomerular Filtration Rate 57 ML/MIN Thyroid Stimulating Hormone 3rd Gen 1.270 uIU/ML Ethyl Alcohol Level LESS THAN 3 MG/DL Urine Opiates Screen NEG Urine Barbiturates Screen NEG Urine Amphetamines Screen POS Urine Benzodiazepines Screen NEG Urine Cocaine Screen NEG Urine Cannabinoids Screen POS Mental Status Examination Appearance: Appropriate Consciousness: Alert Orientation: x4 Motor Activity: Other (No motor abnormalities noted) Speech: Unremarkable Language: Adequate Fund of Knowledge: Adequate Attention and Concentration: Adequate Memory: Unremarkable Mood: Appropriate Affect: Appropriate Thought Process & Associations: Intact, Logical, Linear Thought Content: Appropriate Hallucination Type: None Delusion Type: None Suicidal Ideation: No Suicidal Plan: No Suicidal Intention: No Homicidal Ideation: No Homicidal Plan: No Homicidal Intention: No Mental Status Exam Remarks Insight and judgment are perhaps fair Assessment & Plan Problem List: (1) Adjustment disorder with mixed disturbance of emotions and conduct ICD Codes: F43.25 - Adjustment disorder with mixed disturbance of emotions and conduct (2) Polysubstance abuse ICD Codes: F19.10 - Other psychoactive substance abuse, uncomplicated Assessment & Plan 27-year-old female with psychiatric history as detailed above who presents under Scherer act. On my examination today, the patient denies that her presenting suicidal threat had any genuine suicidal intent behind it. It was apparently also facilitated by substance use. She is presently clinically sober. She denies any suicidal or homicidal ideation. She contracts for safety. There is no evidence of unstable mental illness as defined under the Csherer act in this patient at this time. She appears to be attending to her basic needs. Synthesizing this information and based on the available evidence , I solar sales representative and assessor that the patient does not meet the Scherer act criteria. I have lifted the Scherer act. I have counseled the patient to abstain from substances of abuse. I have recommended outpatient mental health and chemical dependency follow-up, and the nurse will provide the appropriate referrals. I have counseled the patient to return to the psychiatric emergency room for any concerning symptoms as part of a general safety plan. The patient is otherwise psychiatrically clear for discharge from the ED. Thank you very much for this consultation. Chiki Sotelo MD October 21, 2017 08:59
== END 2017-10-21 09:08 | disposition home or self-care (01) ==
LOC: NEPJ 15:51
DX: F32.9 Major depressive disorder, single episode, unspecified (principal); I10 Essential (primary) hypertension; E03.9 Hypothyroidism, unspecified; F17.210 Nicotine dependence, cigarettes, uncomplicated; Z88.6 Allergy status to analgesic agent
CPT/HCPCS: 80048; 80307; 84443; 84703; 85025; 96372